=== PATIENT | female | born 1955 | race Caucasian/White ===

== ENCOUNTER 2016-11-11 07:53 | Outpatient (CLI) ==
[2016-11-11 08:27] LABS: ALBUMIN 3.6 g/dL (3.4-5.0); ALBUMIN/GLOBULIN RATIO 0.84; BILIRUBIN,TOTAL 0.14 mg/dL (0.00-1.20); BUN/CREATININE RATIO 14.1; CALCIUM 9.4 mg/dL (8.2-10.2); CHOL/HDL RATIO 6.4 (4.5-5.5); CREATININE 0.78 mg/dL (0.60-1.30); TOTAL PROTEIN 7.9 g/dL (5.8-8.1)
== END 2016-11-11 07:54 | disposition home or self-care (01) ==
LOC: LAB 07:53
PROVIDERS: ATTEND Nurse Practitioner Family
DX: E78.5 Hyperlipidemia, unspecified (principal)
CPT/HCPCS: 36415; 80053; 80061

== ENCOUNTER 2016-12-25 07:50 | Outpatient (CLI) ==
[2016-12-25 08:26] LABS: ALBUMIN 3.7 g/dL (3.4-5.0); ANION GAP 14.1; BILIRUBIN,TOTAL 0.18 mg/dL (0.00-1.20); BUN/CREATININE RATIO 8.86; CALCIUM 9.5 mg/dL (8.2-10.2); CHOL/HDL RATIO 6.2 (4.5-5.5); CREATININE 0.79 mg/dL (0.60-1.30); POTASSIUM 4.1 mmol/L (3.5-5.10); TOTAL PROTEIN 7.4 g/dL (5.8-8.1)
== END 2016-12-25 07:51 | disposition home or self-care (01) ==
LOC: LAB 07:50
PROVIDERS: ATTEND Nurse Practitioner Family
DX: E78.5 Hyperlipidemia, unspecified (principal); E78.1 Pure hyperglyceridemia
CPT/HCPCS: 36415; 80053; 80061

== ENCOUNTER 2017-05-15 07:44 | Outpatient (CLI) ==
[2017-05-15 07:59] LABS: BASOPHILS # (AUTO) 0.1 K/uL (0-0.2); BASOPHILS % (AUTO) 1.7 % (0.0-3.0); EOSINOPHILS # (AUTO) 0.3 K/ul (0.0-0.7); EOSINOPHILS % (AUTO) 6.8 % (0.0-7.0); HEMATOCRIT 40.3 % (37.0-47.0); HEMOGLOBIN 13.4 g/dl (12.0-16.0); IMMATURE GRANULOCYTE % (AUTO) 0.2 % (0.0-5.0); LYMPHOCYTES # (AUTO) 1.5 K/uL (0.60-3.4); LYMPHOCYTES % (AUTO) 31.1 (10.0-50.0); MEAN CORPUSCULAR HEMOGLOBIN 28.9 pg (27.0-31.0); MEAN CORPUSCULAR HGB CONC 33.3 (31.8-35.4); MEAN CORPUSCULAR VOLUME 86.9 fl (81.0-99.0); MONOCYTES # (AUTO) 0.3 K/uL (0.4-2.0); MONOCYTES % (AUTO) 6.2 (0-10); NEUTROPHILS # (AUTO) 2.6 K/ul (2.0-6.9); PLATELET COUNT 233 10^3/uL (140-440); RED BLOOD COUNT 4.64 10^6/ul (4.20-5.40); WHITE BLOOD COUNT 4.83 K/ul (4.6-10.2)
[2017-05-15 08:35] LABS: ALBUMIN 3.7 g/dL (3.4-5.0); ALBUMIN/GLOBULIN RATIO 0.86; BILIRUBIN,TOTAL 0.24 mg/dL (0.00-1.20); BUN/CREATININE RATIO 15.18; CALCIUM 10.2 mg/dL (8.2-10.2); CHOL/HDL RATIO 6.7 (4.5-5.5); CREATININE 0.79 mg/dL (0.60-1.30)
== END 2017-05-15 07:45 | disposition home or self-care (01) ==
LOC: LAB 07:44
PROVIDERS: ATTEND Nurse Practitioner Family
DX: E78.1 Pure hyperglyceridemia (principal); E78.5 Hyperlipidemia, unspecified; F41.9 Anxiety disorder, unspecified; I10 Essential (primary) hypertension
CPT/HCPCS: 36415; 80053; 80061; 84443; 85025

== ENCOUNTER 2017-05-27 12:46 | Outpatient (CLI) | END 2017-05-27 12:47 | disposition home or self-care (01) | LOC: RAD 12:46 | PROVIDERS: ATTEND Nurse Practitioner Family | DX: Z12.31 Encounter for screening mammogram for malignant neoplasm of breast (principal) | CPT/HCPCS: 77067 ==

== ENCOUNTER 2017-11-10 08:26 | Outpatient (CLI) | END 2017-11-10 08:27 | disposition home or self-care (01) | LOC: LAB 08:26 | PROVIDERS: ATTEND Nurse Practitioner Family | DX: E78.5 Hyperlipidemia, unspecified (principal); I10 Essential (primary) hypertension | CPT/HCPCS: 36415; 80053; 80061; 85025 ==

== ENCOUNTER 2018-05-04 16:25 | Outpatient (CLI) ==
--- NOTE | 2018-05-04 17:01 | DI ---
EXAM: Three views of the right elbow. History: Right elbow pain. Findings / impression: There is a mildly displaced intra-articular fracture of the right radial head of indeterminate age. No dislocation. No obvious joint effusion is present. Osteopenia.
--- NOTE | 2018-05-04 17:03 | DI ---
EXAM: Three views of the right shoulder. History: Right shoulder pain. Findings: Osteopenia. No acute fracture or dislocation. Mild narrowing of the right AC joint and ri ght glenohumeral joint. There is sclerosis and cystic change within the superior lateral aspect of th e humeral head. No abnormal calcifications or radiopaque foreign bodies. Impression: 1. No acute osseous abnormality. 2. Mild arthritis. 3. Possible rotator cuff disease
--- NOTE | 2018-05-04 17:03 | DI ---
EXAM: Two views of the right humerus. History: Right arm pain. Comparison: Right elbow radiograph 05/04/2018 Findings / impression: Age indeterminate mildly displaced intra-articular fracture of the radial head . No dislocation. Osteopenia.
== END 2018-05-04 16:26 | disposition home or self-care (01) ==
LOC: RAD 16:25
PROVIDERS: ATTEND Nurse Practitioner Family
DX: M25.511 Pain in right shoulder (principal); M79.601 Pain in right arm; M25.521 Pain in right elbow

== ENCOUNTER 2018-05-27 09:18 | Outpatient (CLI) ==
--- NOTE | 2018-05-28 11:53 | MAMMO ---
EXAM: Bilateral digital screening mammogram (2-D and 3-D) History: Screening Comparison: Bilateral mammogram 05/27/2017 Findings: MLO and CC views of bilateral breasts demonstrate scattered fibroglandular breast parenchy ma. CAD was reviewed by the radiologist. Tomosynthesis was performed. Stable benign bilateral vasc ular and scattered calcifications. There are no dominant masses, no suspicious microcalcifications a nd no architectural distortions Impression: Benign stable mammogram. Recommend followup routine screening mammography in 1 year. BIRADS 2
== END 2018-05-27 09:19 | disposition home or self-care (01) ==
LOC: RAD 09:18
PROVIDERS: ATTEND Nurse Practitioner Family
DX: Z12.31 Encounter for screening mammogram for malignant neoplasm of breast (principal)
CPT/HCPCS: 77067

== ENCOUNTER 2018-09-01 06:35 | Outpatient (CLI) ==
--- NOTE | 2018-09-03 10:26 | ECHO2D ---
Date of Exam: 09/01/18 Ordering Physician: SALOME RAHMAN APRN Room #: OP Reason for Echo: CHEST PAIN, ABNORMAL EKG M-Mode Normal Adult Results LV Dimensions Normal Adult Results AoV Opening excursions >1.6 1.6 LVEDD-base- 3.5-5.8 4.0 Ao root dimensions 2.0-3.7 3.3 LVESD-base- 3.1-4.6 L. Atrium dimensions 1.9-3.8 3.6 Post. Wall thickness 0.8-1.1 1.1 IV septum (thickness) 0.7-1.2 1.3 Post. Wall excursion 0.72-1.3 NORMAL Septal motion NORMAL Systolic motion R. Ventricular cavity 1.5-2.0 NORMAL LVEF 60% 57% Paradoxical septal wall motion NORMAL 2-D : 2-D M Mode Echocardiogram was performed using apical four chamber and left parasternal long and short axis views. Mitral, tricuspid and aortic valves appear to be normal. Contractility of the left ventricle seems to be normal, so is the cavity size. Left atrial cavity size and aortic root appear to be normal. There is no pericardial effusion. There is no thrombus noted in the left ventricular or left aortic cavity. No mitral valve prolapse noted. COLOR FLOW: MODERATE AORTIC REGURGITATION M-MODE: MV: NORMAL AV: NORMAL TV: NORMAL PV: CHAMBER SIZE: NORMAL WALL MOTION: NORMAL PERICARDIUM: NORMAL INTERPRETATION: 1. LEFT VENTRICULAR HYPERTROPHY 2. MODERATE AORTIC REGURGITATION 3. NORMAL LEFT VENTRICULAR CONTRACTILITY 4. NORMAL LEFT VENTRICLE SIZE MTDD
== END 2018-09-01 06:36 | disposition home or self-care (01) ==
LOC: CAR 06:35
PROVIDERS: ATTEND Nurse Practitioner Family
DX: R07.9 Chest pain, unspecified (principal); R94.31 Abnormal electrocardiogram [ECG] [EKG]

== ENCOUNTER 2018-10-20 07:31 | Outpatient (CLI) | END 2018-10-20 07:32 | disposition home or self-care (01) | LOC: LAB 07:31 | PROVIDERS: ATTEND Nurse Practitioner Family | DX: E78.5 Hyperlipidemia, unspecified (principal); E78.1 Pure hyperglyceridemia | CPT/HCPCS: 36415; 80053; 80061 ==

== ENCOUNTER 2018-11-04 11:37 | Outpatient (CLI) ==
--- NOTE | 2018-11-04 15:45 | DI ---
EXAM: 4 views of the left foot HISTORY: Pain postop. COMPARISON: None FINDINGS: There are postsurgical changes and hardware at the first MTP joint. There is no hardware f racture or loosening. There is mild degenerative change of the IP joint of the great toe. There is degenerative change of the MTP joints. There is internal fixation hardware in the distal fifth metat arsal. The arch is maintained with calcaneal spurs. IMPRESSION: 1. No acute abnormality or visualized fracture. 2. Postoperative changes of the first MTP joint. No evidence of hardware fracture or loosening. Th ere is degenerative change throughout the MTP joints. 3. There is no significant loss of the plantar arch with weightbearing.
== END 2018-11-04 11:38 | disposition home or self-care (01) ==
LOC: RAD 11:37
PROVIDERS: ATTEND Podiatrist Foot & Ankle Surgery
DX: M79.672 Pain in left foot (principal)

== ENCOUNTER 2019-04-20 07:39 | Outpatient (CLI) | END 2019-04-20 07:40 | disposition home or self-care (01) | LOC: LAB 07:39 | PROVIDERS: ATTEND Nurse Practitioner Family | DX: F41.9 Anxiety disorder, unspecified (principal); I10 Essential (primary) hypertension; E78.5 Hyperlipidemia, unspecified; E78.1 Pure hyperglyceridemia; Z72.0 Tobacco use | CPT/HCPCS: 36415; 80053; 80061; 84443; 85025 ==

== ENCOUNTER 2025-05-21 08:46 | Inpatient (IN) ==
--- NOTE | 2025-05-21 09:10 | ED.PDOC ---
General [facility] ED Provider: Dr. SABRA MANCUSO MD Chief Complaint: Dizziness Stated Complaint: Patient is a 69-year-old female that reported to the emergency department for generalized weakness. Patient stated that for the past week she has had generalized weakness and some dizziness. Patient stated that she just does not want to eat or drink anything because she does not feel like it. Patient stated that she has had some nausea and vomiting but her last episode was yesterday. Patient stated that prior to these symptoms starting she had a UTI for which she was treated with levofloxacin. Patient stated that she has not been able to see her doctor since then and has not gotten any better as mentioned above. Patient stated that she has been generalized weak. Patient stated that she has not lost any use of the limbs or any sensation in the limbs. Patient stated that she has not had any falls or loss of consciousness. Patient stated that she has not had any head trauma. Patient stated that she has not had any fever that she knows of. Patient denies any shortness of breath, lymphadenopathy, fever, or any other acute symptoms at the current time. Patient's vital signs are currently stable. Patient's GCS is 15. Patient is alert and oriented person, place, and time. Patient's NIH score is 0. Time Seen by Provider: 05/21/25 08:51 Mode of Arrival: Walk-In Information Source: Patient Exam Limitations: No limitations Primary Care Provider: GHASSAN HENNING MD Nursing and Triage Documentation Reviewed and Agree: Yes Opioid Naive vs. Tolerant What is Opioid Naive?: *Opioid Naive implies the patient is not already taking opioids or not chronically receiving opioids on a daily basis. *PRN dosing is not "usually" associated with tolerance. *Patients are at higher risk of over-sedation and aspiration. What is Opioid Tolerant?: *Opioid Tolerance implies less than the expected response to an opioid. *Acquired tolerance is defined by the patient taking 60mg of oral morphine daily (or equianalgesic dose of another opioid) for 1 week or more. *Often associated with chronic pain. *May take more than usual dose to achieve desired pain control. Review of Systems Review Of Systems Constitutional: Reports No symptoms Cardiac: Reports Lightheadedness Neurological: Reports Weakness All Other Systems: Reviewed and Negative [facility] Medical History Pre-syncope Concern for orthostatics previous visit. Remains resolved per patient. Reviewed poor diet, insomnia, posture. Discussed electrolyte issues w/ diet, cardiovascular changes w/ posture changes, heart rhythm issues, history of murmur, history of aortic aneursym. NSAIDS reviewed w/ patient. Some literature supports ?benefit to Aneursym when NSAIDS used. She is doing very well. - Bradycardia mild. EKG declined - Not on BB. Denies falls/dizzines sas of 09/26/24. Stable. R55 - Syncope and collapse (ICD-10) Pain of right upper extremity will get xray today of right arm and call with results continue muscle relaxer M79.601 - Pain in right arm (ICD-10) Smokes 1/2 pack per day F17.210 - Nicotine dependence, cigarettes, uncomplicated (ICD-10) Smoking greater than 40 pack years F17.210 - Nicotine dependence, cigarettes, uncomplicated (ICD-10) Back pain stable 08/04/23. Xray 07/30/22. LSP. Multlevel degeneration changes. Some progressive disc disease. M54.9 - Dorsalgia, unspecified (ICD-10) Osteopenia M85.80 - Other specified disorders of bone density and structure, unspecified site (ICD-10) Smokes less than 1/2 pack per day F17.210 - Nicotine dependence, cigarettes, uncomplicated (ICD-10) Medicare annual wellness visit, subsequent Z00.00 - Encounter for general adult medical examination without abnormal findings (ICD-10) At risk for bone density loss Z91.89 - Other specified personal risk factors, not elsewhere classified (ICD-10) Grief F43.21 - Adjustment disorder with depressed mood (ICD-10) Cervicalgia M54.2 - Cervicalgia (ICD-10) Dizziness and giddiness R42 - Dizziness and giddiness (ICD-10) Right elbow pain M25.521 - Pain in right elbow (ICD-10) Partial tear of common extensor tendon of elbow S56.519A - Strain of other extensor muscle, fascia and tendon at forearm level, unspecified arm, initial encounter (ICD-10) Tingling of right upper extremity MRI without contrast R20.2 - Paresthesia of skin (ICD-10) Tendonitis of elbow, right advised bracing elbow apply ice, take prescribed medicine Prednisone x 5 days, then start Nabumentone, and Flexeril at bedtime as needed advised to avoid repetitive motions, lifting greater than 5 pounds, pulling and tugging follow up in 2 weeks M65.9 - Synovitis and tenosynovitis, unspecified (ICD-10) Tobacco abuse Z72.0 - Tobacco use (ICD-10) Tingling of left upper extremity R20.2 - Paresthesia of skin (ICD-10) Left shoulder pain M25.512 - Pain in left shoulder (ICD-10) Hypertension Initial check 152/78 repeat 136/80. I10 - Essential (primary) hypertension (ICD-10) Gastroesophageal reflux disease K21.9 - Gastro-esophageal reflux disease without esophagitis (ICD-10) Hallux valgus of left foot M20.12 - Hallux valgus (acquired), left foot (ICD-10) Hallux valgus of right foot M20.11 - Hallux valgus (acquired), right foot (ICD-10) Tailor's bunion of left foot M21.622 - Bunionette of left foot (ICD-10) Tailor's bunion of right foot M21.621 - Bunionette of right foot (ICD-10) Anxiety F41.9 - Anxiety disorder, unspecified (ICD-10) Foot pain, bilateral M79.671 - Pain in right foot (ICD-10) Cervical cancer C53.9 - Malignant neoplasm of cervix uteri, unspecified (ICD-10) Family History Mother , pneumonia at age 98 Diabetes Alzheimer disease Cardiac disease FATHER , pacemaker quit working. heart failure Cardiac disease SISTER , pacemaker quit working Cardiac disease BROTHER , diabetes Cardiac disease Diabetes Social History Smoking and tobacco status: Current every day smoker Tobacco type: cigarettes Smoking packs per day: 1 Years smoked: 31 Tobacco: How many years used: 31 Quit status: quit date established Second hand smoke exposure: Yes Smoking risk assessment performed: Yes Alcohol intake: never Counseling given: No Substance use type: does not use Counseling given: No Judie/buddhism: Mandaeism Special judie needs: No Agree to transfusion: No Adopted: No Caregiver/support person: No Foster care: No Household members: significant other Housing: house Marital status: W / Lives independently: Yes Daycare: no daycare Number of children: 4 Number of grandchildren: 8 Highest education level completed: 9th grade Financial difficulty paying for basics: not very hard service: No FDC: No Current occupational status: retired Current occupational exposures/hazards: No 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 for sister and niece ) Sexually active: No Do you think of yourself as: straight/heterosexual Current gender identity: female Seatbelt use: always Helmet use: No (N/A) Drives intoxicated or rides with intoxicated hydraulic lift driver: No Current diet type/program: regular Well-balanced diet: rarely Caffeine: Yes Eating out: rarely or never Reads food labels: usually or always During the past year weight has: decreased > 10 lbs Water heater temperature set < 120 degrees: Yes Working smoke detector in home: Yes Fire extinguisher in home: No Carbon monoxide detector in home: Yes Firearms in home: Yes Firearms unloaded and locked: Yes What type of physical activity do you participate in?: walking and other Physical activity functional status: independent ambulation How many days of moderate to strenuous exercise, like a brisk walk, did you do in the last 7 days: 0 Surgical History H/O tubal ligation Z98.51 - Tubal ligation status (ICD-10) Previous back surgery Z98.89 - Other specified postprocedural states (ICD-10) left bunion surgery oct 2017 History of musculoskeletal system surgery (12/31/15) 4-[address]th [address] [place] Z98.890 - Other specified postprocedural states (ICD-10) History of tubal ligation (~1977) Z98.51 - Tubal ligation status (ICD-10) Status post tonsillectomy Z90.89 - Acquired absence of other organs (ICD-10) Status post hysterectomy (~2003) secondary to Cervical CA ([place]) Z90.710 - Acquired absence of both cervix and uterus (ICD-10) Status post cholecystectomy (~1984) Z90.49 - Acquired absence of other specified parts of digestive tract (ICD- 10) Female Reproductive History Menstrual Age of Menarche: 10 Hx Hysterectomy: Yes (2006) Hx Tubal Ligation: Yes Physical Exam Physical Exam Appearance: Reports Other (Alert, pleasant elderly female) Ill-appearing: None Pain Distress: None Eyes: Reports FELICITA, EOMI and Conjunctiva clear ENT: Reports Ears normal, Nose normal, Oropharynx normal and Other (Moist oral mucosa) Neck: Supple Respiratory: Reports Airway patent, Breath sounds clear, Breath sounds equal and Respirations nonlabored Cardiovascular: Reports RRR, Pulses normal, No rub and No murmur GI/: Reports Soft, Nontender, No masses and No Organomegaly Musculoskeletal: Reports Normal strength, ROM intact, No edema and No calf tenderness Skin: Reports Warm, Dry and Normal color Neurological: Reports Sensation intact, Motor intact, Alert and Oriented Psychiatric: Reports Mood appropriate Anna Coma Scale Anna Coma Scale Response Scores: Best Response = 15 Comatose Client = 8 or Less Totally Unresponsive = 3 Physician Progress Note Physician Progress Note: Patient is a 69-year-old female that reported to the emergency department for generalized weakness. Patient stated that for the past week she has had generalized weakness and some dizziness. Patient stated that she just does not want to eat or drink anything because she does not feel like it. Patient stated that she has had some nausea and vomiting but her last episode was yesterday. Patient stated that prior to these symptoms starting she had a UTI for which she was treated with levofloxacin. Patient stated that she has not been able to see her doctor since then and has not gotten any better as mentioned above. Patient stated that she has been generalized weak. Patient stated that she has not lost any use of the limbs or any sensation in the limbs. Patient stated that she has not had any falls or loss of consciousness. Patient stated that she has not had any head trauma. Patient stated that she has not had any fever that she knows of. Patient denies any shortness of breath, lymphadenopathy, fever, or any other acute symptoms at the current time. Patient's vital signs are currently stable. Patient's GCS is 15. Patient is alert and oriented person, place, and time. Patient's NIH score is 0. Patient did state that she smokes a pack of cigarettes daily. Patient denies any drug or alcohol use. -It appears patient was seen on 05/12/2025 this month and was diagnosed with a UTI. Patient was subsequently given cephalexin 500 mg twice daily. Since that time patient has not gotten any better. Will order a urinalysis. - Will order IV normal saline 1 L bolus for dehydration. - Will give the patient p.o. meclizine 25 mg once for dizziness. - Will order a an EKG and a troponin to rule out cardiac as the reasoning for patient's lightheadedness. - Will order CT of the head to rule out any intracranial pathology that could be contributing to the patient's lightheadedness or dizziness. - Will order baseline labs. - EKG shows normal sinus rhythm with left axis deviation. Ventricular rate 63 bpm. No acute STEMI noted. EKG interpreted by ER physician. - CT of the head shows no acute intracranial findings. - Patient's sodium is 112. Will give hypertonic saline in the emergency department. Will give hypertonic saline 3% at 150 mL over 20 minutes. Will contact hospitalist for admission. [phone]) spoke to Maria Luz hospitalist at [facility] and discussed patient's hyponatremia and current treatment with hypertonic saline. [facility] has agreed to accept this patient for inpatient admission. Patient's vital signs are stable at time of admission. Patient is pending urinalysis at time of admission. Course Course 05/21/25 09:34 05/21/25 09:34 Orders, Labs, Meds: Lab Review 05/21/25 05/21/25 09:34 09:50 WBC 10.35 H RBC 4.70 Hgb 13.0 Hct 39.7 MCV 84.5 MCH 27.7 MCHC 32.7 RDW Coeff of Keith 16.4 H Plt Count 422 Immature Gran % (Auto) 2.6 Neut % (Auto) 85.6 H Lymph % (Auto) 4.4 L Bath % (Auto) 6.9 Eos % (Auto) 0.1 Baso % (Auto) 0.4 Neut # (Auto) 8.9 H Lymph # (Auto) 0.5 L Bath # (Auto) 0.7 Eos # (Auto) 0.0 Baso # (Auto) 0.0 Immature Gran # (Auto) 0.3 Sodium 112.7 L* Potassium 4.15 Chloride 82.7 L Carbon Dioxide 14.6 L Anion Gap 19.55 BUN 22.9 H Creatinine 0.81 Estimated GFR (MDRD) 70.00 BUN/Creatinine Ratio 28.27 Glucose 102.9 Calcium 9.00 Total Bilirubin 1.09 AST 48.2 H ALT 23.3 Alkaline Phosphatase 118.7 Troponin I < 0.012 Total Protein 9.04 H Albumin 4.51 Globulin 4.53 Albumin/Globulin Ratio 0.99 Influ A Molecular Assay Negative by naat Influ B Molecular Assay Negative by naat SARS CoV-2 RNA Rapid ABDIRIZAK Negative Orders Category Date Time Status EKG-(ED & IP/OBS ONLY) Stat CARDIO 05/21/25 09:07 Completed CBC W/ AUTO DIFF Stat LAB 05/21/25 09:34 Completed CMP [COMPREHENSIVE METABOLIC PANEL] Stat LAB 05/21/25 09:34 Completed COVID [SARS COV-2 RNA RAPID ABDIRIZAK] Stat LAB 05/21/25 09:50 Completed FLU A & B MOLECULAR [FLU A/B MOLECULAR] Stat LAB 05/21/25 09:50 Completed TROPONIN I Stat LAB 05/21/25 09:34 Completed URINALYSIS C & S IF INDICATED Stat LAB 05/21/25 10:33 Received Meclizine HCl [Antivert] Meds 05/21/25 09:05 Discontinued 25 mg PO ONCE STA Sodium Chloride 0.9% [Sodium Chloride] 1,000 ml Meds 05/21/25 09:05 Discontinued IV BOLUS Sodium Chloride 3% 150 ml Meds 05/21/25 10:14 Discontinued IV 450 mls/hr CT HEAD W/O CONTRAST Stat RADS 05/21/25 09:04 Completed Medications Discontinued Medications Generic Name Dose Route Start Last Admin Trade Name Freq PRN Reason Stop Dose Admin Sodium Chloride 1,000 mls @ 1,000 mls/hr 05/21/25 09:05 05/21/25 09:39 Sodium Chloride IV 05/21/25 10:04 1,000 mls/hr BOLUS ONE Administration Sodium Chloride 150 mls @ 450 mls/hr 05/21/25 10:14 Sodium Chloride 3% IV 05/21/25 10:33 .Q20M ONE Meclizine HCl 25 mg 05/21/25 09:05 05/21/25 09:39 Meclizine Hcl 25 Mg Tablet PO 05/21/25 09:06 25 mg ONCE STA Administration Vital Signs: Temp Pulse Resp BP Pulse Ox 05/21/25 09:05 97.2 F L 66 18 132/67 96 Discharge Plan Discharge Patient Disposition: ADMITTED INPATIENT Discharge Problem: Acute hyponatremia, Dehydration, Generalized weakness Did you review [place] [employer] for ALL controlled substances?: Not Applicable ED Provider: SABRA MANCUSO Condition: Stable
--- NOTE | 2025-05-21 09:38 | CT ---
EXAM: CT HEAD WITHOUT CONTRAST. HISTORY: Lightheaded. COMPARISON: MRI of the brain 10/09/2023. TECHNIQUE: Noncontrast CT images of the head were obtained. Axial reconstructions with sagittal and coronal reformats were provided. The submitted images are mildly limited by patient motion FINDINGS: The ventricles, basal cisterns and sulci are normal in size, shape and configuration for the patient's age. There is no evidence of an acute intracranial hemorrhage. No mass effect or shift of the midline. No abnormal extra-axial fluid collections are identified. Decreased attenuation along the periventricular/deep white matter suggesting mild changes of chronic microvascular ischemic disease. 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 Gar-white differentiation is within normal limits. Bony calvarium is unremarkable. Scalp and soft tissues are unremarkable. The visualized paranasal sinuses are well-aerated. Vascular calcifications. IMPRESSION: No acute intra-cranial abnormality. Chronic findings as detailed above. All CT scans are performed using dose optimization techniques as appropriate to the performed exam and include at least one of the following: Automated exposure control, adjustment of the mA and/or kV according to size, and the use of iterative reconstruction technique.
[2025-05-21] MEDS: ANTIVERT PO STA (09:39)
[2025-05-21] MEDS: SODIUM CHLORIDE 1,000 ML IV ONE (09:39)
[2025-05-21 09:43] LABS: IMMATURE GRANULOCYTE # (AUTO) 0.3 (0.0-1.0); IMMATURE GRANULOCYTE % (AUTO) 2.6 % (0.0-5.0); RDW COEFFICIENT OF VARIATION 16.4 % (11.6-14.8)
[2025-05-21 10:09] LABS: CREATININE 0.81 mg/dL (0.60-1.30)
[2025-05-21 10:10] LABS: MOLECULAR FLU A NEGATIVE BY NAAT (NEGATIVE); MOLECULAR FLU B NEGATIVE BY NAAT (NEGATIVE); SARS COV-2 RNA RAPID NAAT NEGATIVE (NEGATIVE)
[2025-05-21] MEDS ORDERED: SODIUM CHLORIDE 3% 150 ML IV ONE (10:14)
[2025-05-21] MEDS ORDERED: ZOFRAN SDV IVP PRN (10:45)
[2025-05-21 11:10] LABS: GLUCOSE, URINE (UA) Negative (NEGATIVE); LEUKOCYTE ESTERASE ,URINE 3+ (NEGATIVE); URINE, BLOOD 3+ (NEGATIVE)
[2025-05-21 11:12] LABS: CHOL/HDL RATIO 7.9 (4.5-5.5); VLDL CHOLESTEROL 38.0 mg/dL (2-30)
[2025-05-21] MEDS: ZOSYN 3.375 GM 3.375 GM in SODIUM CHLORIDE 100ML 100 ML IV ONE (11:29)
[2025-05-21] MEDS: SODIUM CHLORIDE 3% 500 ML IV SCH (12:08)
--- NOTE | 2025-05-21 12:36 | PCM ---
Date of Service Date Seen by Provider: 05/21/25 Time Seen by Provider: 13:00 Admit Day/Time Admission Date: 05/21/25 Admission Time: 10:43 Reason for Admission Chief Complaint: ACUTE HYPONATREMIA, DEHYDRATION Hospital Provider Hospital Provider: JOANNA BARKSDALE PA-C, [facility] Primary Care Physician Primary Care Physician: GHASSAN HENNING MD History of Present Illness History of Present Illness: Patient is a 69-year-old female with past medical history of hyperlipidemia, hypertension, GERD, restless leg syndrome, aortic regurg, COPD, osteoporosis who presented to the ER with overall weakness and not feeling well. She was recently diagnosed with a UTI and prescribed Keflex. She states she was able to finish most of it except for 3 doses. She has continued to not feel well and have significant dizziness. She states she had 1 episode of vomiting this morning. States she has not ate or drank much. She has been alert and oriented. In the ER she was found to have a sodium level of 112. Historically it has been in the 140s. No recent labs in the last few months to compare to. No new medications recently other than the keflex. Urinalysis still significant for UTI. Zosyn given in ER started on 3% hypertonic saline. Admitted to [facility] [place]. Case Discussed With Case Discussed With: Patient's case was discussed with the ER Physicians, Dr. Mariscal. [facility] Medical History Pre-syncope Concern for orthostatics previous visit. Remains resolved per patient. Reviewed poor diet, insomnia, posture. Discussed electrolyte issues w/ diet, cardiovascular changes w/ posture changes, heart rhythm issues, history of murmur, history of aortic aneursym. NSAIDS reviewed w/ patient. Some literature supports ?benefit to Aneursym when NSAIDS used. She is doing very well. - Bradycardia mild. EKG declined - Not on BB. Denies falls/dizzines sas of 09/26/24. Stable. R55 - Syncope and collapse (ICD-10) Pain of right upper extremity will get xray today of right arm and call with results continue muscle relaxer M79.601 - Pain in right arm (ICD-10) Smokes 1/2 pack per day F17.210 - Nicotine dependence, cigarettes, uncomplicated (ICD-10) Smoking greater than 40 pack years F17.210 - Nicotine dependence, cigarettes, uncomplicated (ICD-10) Back pain stable 08/04/23. Xray 07/30/22. LSP. Multlevel degeneration changes. Some progressive disc disease. M54.9 - Dorsalgia, unspecified (ICD-10) Osteopenia M85.80 - Other specified disorders of bone density and structure, unspecified site (ICD-10) Smokes less than 1/2 pack per day F17.210 - Nicotine dependence, cigarettes, uncomplicated (ICD-10) Medicare annual wellness visit, subsequent Z00.00 - Encounter for general adult medical examination without abnormal findings (ICD-10) At risk for bone density loss Z91.89 - Other specified personal risk factors, not elsewhere classified (ICD-10) Grief F43.21 - Adjustment disorder with depressed mood (ICD-10) Cervicalgia M54.2 - Cervicalgia (ICD-10) Dizziness and giddiness R42 - Dizziness and giddiness (ICD-10) Right elbow pain M25.521 - Pain in right elbow (ICD-10) Partial tear of common extensor tendon of elbow S56.519A - Strain of other extensor muscle, fascia and tendon at forearm level, unspecified arm, initial encounter (ICD-10) Tingling of right upper extremity MRI without contrast R20.2 - Paresthesia of skin (ICD-10) Tendonitis of elbow, right advised bracing elbow apply ice, take prescribed medicine Prednisone x 5 days, then start Nabumentone, and Flexeril at bedtime as needed advised to avoid repetitive motions, lifting greater than 5 pounds, pulling and tugging follow up in 2 weeks M65.9 - Synovitis and tenosynovitis, unspecified (ICD-10) Tobacco abuse Z72.0 - Tobacco use (ICD-10) Tingling of left upper extremity R20.2 - Paresthesia of skin (ICD-10) Left shoulder pain M25.512 - Pain in left shoulder (ICD-10) Hypertension Initial check 152/78 repeat 136/80. I10 - Essential (primary) hypertension (ICD-10) Gastroesophageal reflux disease K21.9 - Gastro-esophageal reflux disease without esophagitis (ICD-10) Hallux valgus of left foot M20.12 - Hallux valgus (acquired), left foot (ICD-10) Hallux valgus of right foot M20.11 - Hallux valgus (acquired), right foot (ICD-10) Tailor's bunion of left foot M21.622 - Bunionette of left foot (ICD-10) Tailor's bunion of right foot M21.621 - Bunionette of right foot (ICD-10) Anxiety F41.9 - Anxiety disorder, unspecified (ICD-10) Foot pain, bilateral M79.671 - Pain in right foot (ICD-10) Cervical cancer C53.9 - Malignant neoplasm of cervix uteri, unspecified (ICD-10) Surgical History H/O tubal ligation Z98.51 - Tubal ligation status (ICD-10) Previous back surgery Z98.89 - Other specified postprocedural states (ICD-10) left bunion surgery oct 2017 History of musculoskeletal system surgery (12/31/15) 4-[address] lumbar [place] Z98.890 - Other specified postprocedural states (ICD-10) History of tubal ligation (~1977) Z98.51 - Tubal ligation status (ICD-10) Status post tonsillectomy Z90.89 - Acquired absence of other organs (ICD-10) Status post hysterectomy (~2003) secondary to Cervical CA ([place]) Z90.710 - Acquired absence of both cervix and uterus (ICD-10) Status post cholecystectomy (~1984) Z90.49 - Acquired absence of other specified parts of digestive tract (ICD- 10) Family History Mother , pneumonia at age 98 Diabetes Alzheimer disease Cardiac disease FATHER , pacemaker quit working. heart failure Cardiac disease SISTER , pacemaker quit working Cardiac disease BROTHER , diabetes Cardiac disease Diabetes Social History Smoking and tobacco status: Current every day smoker Tobacco type: cigarettes Smoking packs per day: 1 Years smoked: 31 Tobacco: How many years used: 31 Quit status: quit date established Second hand smoke exposure: Yes Smoking risk assessment performed: Yes Alcohol intake: never Counseling given: No Substance use type: does not use Counseling given: No Judie/protestant: Evangelical Special judie needs: No Agree to transfusion: No Adopted: No Caregiver/support person: No Foster care: No Household members: significant other Housing: house Marital status: W / Lives independently: Yes Daycare: no daycare Number of children: 4 Number of grandchildren: 8 Highest education level completed: 9th grade Financial difficulty paying for basics: not very hard service: No senior care: No Current occupational status: retired Current occupational exposures/hazards: No 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 [employer] Pets and animals: Yes (dog) Leisure activites: games, reading and other History of recent travel: Yes ([facility] for sister and niece ) Sexually active: No Do you think of yourself as: straight/heterosexual Current gender identity: female Seatbelt use: always Helmet use: No (N/A) Drives intoxicated or rides with intoxicated auto haulaway driver: No Current diet type/program: regular Well-balanced diet: rarely Caffeine: Yes Eating out: rarely or never Reads food labels: usually or always During the past year weight has: decreased > 10 lbs Water heater temperature set < 120 degrees: Yes Working smoke detector in home: Yes Fire extinguisher in home: No Carbon monoxide detector in home: Yes Firearms in home: Yes Firearms unloaded and locked: Yes What type of physical activity do you participate in?: walking and other Physical activity functional status: independent ambulation How many days of moderate to strenuous exercise, like a brisk walk, did you do in the last 7 days: 0 Allergies Allergies Allergy/AdvReac Type Severity Reaction Status Date / Time codeine Allergy Intermediate Nausea Verified 05/21/25 09:14 Current Medications Home Medications Acetaminophen (Acetaminophen 325 Mg Tablet) 650 mg PO Q4H PRN PRN Reason: Mild Pain Atorvastatin Calcium (Atorvastatin Calcium 20 Mg Tablet) 0 mg PO .COMPLEX STACEY Fenofibrate (Fenofibrate 160 Mg Tablet) 160 mg PO QDAY STACEY Sodium Chloride (Sodium Chloride 3%) 500 mls @ 30 mls/hr IV .[id number] STACEY Last Admin: 05/21/25 12:08 Dose: 30 mls/hr CEFTRIAXONE/D5W 1 GM PREMIX (Rocephin 1 Gm/50 Ml D5w) 1 gm in 50 mls @ 100 mls/hr IV DAILY STACEY Stop: 05/24/25 20:59 Losartan Potassium (Losartan Potassium 25 Mg Tablet) 25 mg PO QDAY STACEY Omeprazole (Omeprazole 20 Mg Capsule.Dr) 0 mg PO .COMPLEX STACEY Ondansetron HCl (Ondansetron Hcl/Pf 4 Mg/2 Ml Sdv) 4 mg IVP Q6H PRN PRN Reason: Nausea / Vomiting Ropinirole HCl (Ropinirole Hcl 0.25 Mg Tablet) 0.25 mg PO DAILY STACEY aspirin-caffeine 500 mg-32.5 mg tablet (Diony Back and Body) 1 ea PO Q4-6H PRN pain 01/31/15 [History Confirmed 05/21/25] atorvastatin 80 mg tablet See Rx Instructions .Route .COMPLEX #30 ea 12/01/22 [Rx Confirmed 05/21/25] alendronate 70 mg tablet See Rx Instructions .Route .COMPLEX #12 tabs 04/06/25 [Rx Confirmed 05/21/25] fenofibrate 160 mg tablet 160 mg PO QDAY #30 tabs 04/06/25 [Rx Confirmed 05/21/25] omeprazole 20 mg capsule,delayed release See Rx Instructions .Route .COMPLEX #30 caps 04/06/25 [Rx Confirmed 05/21/25] ropinirole 0.25 mg tablet 0.25 mg PO ONCE #30 tabs 04/06/25 [Rx Confirmed 05/21/25] losartan 25 mg tablet 25 mg PO QDAY #30 tabs 05/09/25 [Rx Confirmed 05/21/25] Opioid Naive vs. Tolerant Does Patient Take Opioids?: No Is Patient Opioid Naive?: Yes What is Opioid Naive?: *Opioid Naive implies the patient is not already taking opioids or not chronically receiving opioids on a daily basis. *PRN dosing is not "usually" associated with tolerance. *Patients are at higher risk of over-sedation and aspiration. Is Patient Opioid Tolerant?: No What is Opioid Tolerant?: *Opioid Tolerance implies less than the expected response to an opioid. *Acquired tolerance is defined by the patient taking 60mg of oral morphine daily (or equianalgesic dose of another opioid) for 1 week or more. *Often associated with chronic pain. *May take more than usual dose to achieve desired pain control. Review of Systems Constitutional: Reports Fatigue, Weakness and Loss of appetite; Denies Fever Head: Reports Normocephalic and Atraumatic Cardiovascular: Denies Chest pain, Chest Pressure or Edema Respiratory: Denies Cough or Shortness of air Gastrointestinal: Reports Nausea and Vomiting; Denies Diarrhea, Reflux, Abdominal pain or Melena Genitourinary: Denies Dysuria or Frequency Neurological: Reports Dizziness; Denies Headache or Syncope Physical examination Most Recent Vital Signs: Most Recent Vital Signs Temperature 97.2 F L 05/21/25 09:05 Temperature Source Infrared 05/21/25 09:05 Pulse Rate 66 05/21/25 09:05 Respiratory Rate 18 05/21/25 09:05 Blood Pressure 132/67 05/21/25 09:05 O2 Sat by Pulse Oximetry 96 05/21/25 09:05 Height 5 ft 05/21/25 09:05 Weight 44.2 kg 05/21/25 09:05 Appearance: Positive Alert and Oriented x3 and Ill-Appearing Skin: Positive [place], Warm and Good Turgor HEENT: Positive Normocephalic and Atraumatic Chest/Lungs: Positive Clear to Auscultation Bilaterally; Negative Rales, Rhonci or Wheezes Heart: Positive RRR and Murmur GI/: Positive Soft, Nontender, Bowel Sounds Normal and No Distention Extremities: Negative Edema Neurological: Positive Cranial Nerves Intact, Alert, Oriented and Other (+genera lized weakness ) Psychiatric: Positive Oriented x4, Appropriate Mood and Appropriate Affect Labs This Visit Labs This Visit: Labs This Visit 05/21/25 05/21/25 05/21/25 09:34 09:50 10:33 WBC 10.35 H RBC 4.70 Hgb 13.0 Hct 39.7 MCV 84.5 MCH 27.7 MCHC 32.7 RDW Coeff of Keith 16.4 H Plt Count 422 Immature Gran % (Auto) 2.6 Neut % (Auto) 85.6 H Lymph % (Auto) 4.4 L [place] % (Auto) 6.9 Eos % (Auto) 0.1 Baso % (Auto) 0.4 Neut # (Auto) 8.9 H Lymph # (Auto) 0.5 L [place] # (Auto) 0.7 Eos # (Auto) 0.0 Baso # (Auto) 0.0 Immature Gran # (Auto) 0.3 Sodium 112.7 L* Potassium 4.15 Chloride 82.7 L Carbon Dioxide 14.6 L Anion Gap 19.55 BUN 22.9 H Creatinine 0.81 Estimated GFR (MDRD) 70.00 BUN/Creatinine Ratio 28.27 Glucose 102.9 Uric Acid Calcium 9.00 Total Bilirubin 1.09 AST 48.2 H ALT 23.3 Alkaline Phosphatase 118.7 Troponin I < 0.012 Total Protein 9.04 H Albumin 4.51 Globulin 4.53 Albumin/Globulin Ratio 0.99 Triglycerides Cholesterol LDL Cholesterol, Calc VLDL Cholesterol HDL Cholesterol Cholesterol/HDL Ratio Urine Color Yellow Urine Clarity Clear Urine pH 6.0 Ur Specific [place] 1.020 Urine Protein 3+ H Urine Glucose (UA) Negative Urine Ketones 1+ H Urine Blood 3+ H Urine Nitrite Positive H Urine Bilirubin 1+ H Urine Urobilinogen 1.0 H Ur Leukocyte Esterase 3+ H Urine Microscopic RBC 10-20 Urine Microscopic WBC 10-20 Ur Squamous Epith Cells 5-10 Urine Bacteria 1+ Influ A Molecular Assay Negative by naat Influ B Molecular Assay Negative by naat SARS CoV-2 RNA Rapid ABDIRIZAK Negative 05/21/25 10:53 WBC RBC Hgb Hct MCV MCH MCHC RDW Coeff of Keith Plt Count Immature Gran % (Auto) Neut % (Auto) Lymph % (Auto) [place] % (Auto) Eos % (Auto) Baso % (Auto) Neut # (Auto) Lymph # (Auto) [place] # (Auto) Eos # (Auto) Baso # (Auto) Immature Gran # (Auto) Sodium Potassium Chloride Carbon Dioxide Anion Gap BUN Creatinine Estimated GFR (MDRD) BUN/Creatinine Ratio Glucose Uric Acid 5.08 Calcium Total Bilirubin AST ALT Alkaline Phosphatase Troponin I Total Protein Albumin Globulin Albumin/Globulin Ratio Triglycerides 189.7 H Cholesterol 173.9 LDL Cholesterol, Calc 114 VLDL Cholesterol 38 H HDL Cholesterol 21.9 L Cholesterol/HDL Ratio 7.9 H Urine Color Urine Clarity Urine pH Ur Specific [place] Urine Protein Urine Glucose (UA) Urine Ketones Urine Blood Urine Nitrite Urine Bilirubin Urine Urobilinogen Ur Leukocyte Esterase Urine Microscopic RBC Urine Microscopic WBC Ur Squamous Epith Cells Urine Bacteria Influ A Molecular Assay Influ B Molecular Assay SARS CoV-2 RNA Rapid ABDIRIZAK Imaging Imaging: EXAM: CT HEAD WITHOUT CONTRAST. HISTORY: Lightheaded. COMPARISON: MRI of the brain 10/09/2023. TECHNIQUE: Noncontrast CT images of the head were obtained. Axial reconstruc tions with sagittal and coronal reformats were provided. The submitted images are mildly limited by patient motion FINDINGS: The ventricles, basal cisterns and sulci are normal in size, shape and co nfiguration for the patient's age. There is no evidence of an acute intracranial hemorrhage. No mass effect or shift of the midline. No abnormal extra-axial fluid collections are identified. Decreased attenuation along the periventricular/deep white matter suggesting mild changes of chronic microvascular ischemic disease. 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 Gar-white differentiation is within normal limits. Bony calvarium is unremarkable. Scalp and soft tissues are unremarkable. The visualized paranasal sinuses are well-aerated. Vascular calcifications. IMPRESSION: No acute intra-cranial abnormality. Chronic findings as detailed above. Review Statement Review Statement: I have independently reviewed and interpreted the labs/EKGs/imaging that were ordered by the ER provider. I have reviewed all outside records that are available currently in our EMR including imaging/notes/labs from previous visits. Plan Plan: 1. Hyponatremia, severe, symptomatic - unclear acuity, will bring up slowly, 3% hypertonic saline at 30 ml/hr, recheck bmp q4hrs. Sent for uric acid, lipids, serum/urine osmol, urine sodium. Reviewed medications, no offenders noted. Could be from lack of intake. Seizure precautions. 2. Hyperlipidemia - Cont home meds 3. Hypertension - Cont home meds 4. GERD - Cont home meds 5. RLS - Cont home meds 6. UTI - urine culture pending, culture from 05/12 showed serratia marcescens sensitive to rocephin, will order rocephin. DVT Prophylaxis: Lovenox Time Spent: Greater than 80 minutes spent with patient, 50% of the time spent with this patient was devoted to counseling and coordination of care. [facility] minutes spent discussing advance care planning. Admit to: inpatient Discussed Plan of Care with Dr. Pat Pandya. Medications Medication Orders: Medications Ordered Category Date Time Status Acetaminophen [Tylenol] Meds 05/21/25 10:45 Active 650 mg PO Q4H PRN Ondansetron HCl/Pf [Zofran Sdv] Meds 05/21/25 10:45 Active 4 mg IVP Q6H PRN Sodium Chloride 3% 500 ml Meds 05/21/25 11:00 Active IV 30 mls/hr
[2025-05-21 12:56] VITALS: BMI 19.4
[2025-05-21 13:16] LABS: CREATININE 0.66 mg/dL (0.60-1.30)
[2025-05-21 17:17] LABS: CREATININE 0.6 mg/dL (0.60-1.30)
[2025-05-21 21:11] LABS: CREATININE 0.54 mg/dL (0.60-1.30)
[2025-05-21] MEDS: ROCEPHIN 1 GM/50 ML D5W 1 GM/50 ML BAG IV SCH (21:16)
[2025-05-22] MEDS: PRILOSEC PO SCH (05:24)
[2025-05-22 05:52] LABS: IMMATURE GRANULOCYTE # (AUTO) 0.1 (0.0-1.0); IMMATURE GRANULOCYTE % (AUTO) 1.6 % (0.0-5.0); RDW COEFFICIENT OF VARIATION 16.5 % (11.6-14.8)
[2025-05-22 06:00] LABS: CREATININE 0.44 mg/dL (0.60-1.30)
[2025-05-22] MEDS: REQUIP PO SCH (08:19)
[2025-05-22] MEDS: LIPITOR PO SCH (08:20)
[2025-05-22] MEDS: TRIGLIDE PO SCH (08:20)
[2025-05-22] MEDS: COZAAR PO SCH (08:20)
[2025-05-22] MEDS: SODIUM CHLORIDE 1,000 ML IV SCH (09:08)
[2025-05-22 10:14] LABS: OSMOLALITY 240.0 mOsm/kg (275-295)
--- NOTE | 2025-05-22 10:50 | DCSUM ---
Hospital Provider Hospital Provider: ROXANNA VILLARREAL, [facility] Primary Care Physician Primary Care Physician: GHASSAN HENNING MD Hospital Course Vital Signs: Most Recent Vital Signs Temperature 99.7 F 05/22/25 05:10 Temperature Source Oral 05/22/25 05:10 Temperature Source Infrared 05/21/25 09:05 Pulse Rate 74 05/22/25 05:10 Respiratory Rate 19 05/22/25 05:10 Blood Pressure 126/62 05/22/25 05:10 Blood Pressure Mean 83 05/22/25 05:10 Blood Pressure Left Arm 120/58 05/21/25 12:26 Blood Pressure Location Left Arm 05/22/25 05:10 Blood Pressure Position Supine 05/22/25 05:10 O2 Sat by Pulse Oximetry 93 L 05/22/25 05:10 Oxygen Delivery Method Room Air 05/22/25 08:00 Height 5 ft 05/21/25 12:26 Weight 45.2 kg 05/21/25 12:26 Telemetry Type Remote Telemetry 05/22/25 07:00 Telemetry Monitoring Continues 05/22/25 07:00 Telemetry Heart Rate 67 05/22/25 07:00 Telemetry SPO2 94 05/21/25 19:00 EKG [place] Interval 0.22 H 05/22/25 07:00 EKG QRS Interval 0.08 05/22/25 07:00 Telemetry Strip Reading SR with 1st degree AVB 05/22/25 07:00 Lab Results Last 24 Hours: 05/22/25 05/21/25 05/21/25 05:42 20:52 17:00 WBC 7.95 RBC 3.91 L Hgb 11.2 L Hct 32.6 L D MCV 83.4 MCH 28.6 MCHC 34.4 RDW Coeff of Keith 16.5 H Plt Count 346 Immature Gran % (Auto) 1.6 Neut % (Auto) 77.8 H Lymph % (Auto) 5.2 L [place] % (Auto) 15.1 H Eos % (Auto) 0.0 Baso % (Auto) 0.3 Neut # (Auto) 6.2 Lymph # (Auto) 0.4 L [place] # (Auto) 1.2 Eos # (Auto) 0.0 Baso # (Auto) 0.0 Immature Gran # (Auto) 0.1 Sodium 121.2 L 122.0 L 118.1 L* Potassium 3.66 3.75 3.91 Chloride 94.5 L 96.2 L 92.8 L Carbon Dioxide 15.7 L 13.5 L 15.1 L Anion Gap 14.66 16.05 14.11 BUN 10.8 13.8 17.1 H Creatinine 0.44 L 0.54 L 0.60 Estimated GFR (MDRD) 141.00 112.00 99.00 BUN/Creatinine Ratio 24.54 25.55 28.50 Glucose 84.9 80.5 77.9 Uric Acid Calcium 7.95 L 7.99 L 7.85 L Total Bilirubin 0.77 AST 40.6 H ALT 17.0 Alkaline Phosphatase 80.2 D Troponin I Total Protein 6.99 Albumin 3.47 L Globulin 3.52 Albumin/Globulin Ratio 0.98 Triglycerides Cholesterol LDL Cholesterol, Calc VLDL Cholesterol HDL Cholesterol Cholesterol/HDL Ratio Urine Color Urine Clarity Urine pH Ur Specific [place] Urine Protein Urine Glucose (UA) Urine Ketones Urine Blood Urine Nitrite Urine Bilirubin Urine Urobilinogen Ur Leukocyte Esterase Urine Microscopic RBC Urine Microscopic WBC Ur Squamous Epith Cells Urine Bacteria Influ A Molecular Assay Influ B Molecular Assay SARS CoV-2 RNA Rapid ABDIRIZAK 05/21/25 05/21/25 05/21/25 13:00 10:53 10:33 WBC RBC Hgb Hct MCV MCH MCHC RDW Coeff of Keith Plt Count Immature Gran % (Auto) Neut % (Auto) Lymph % (Auto) [place] % (Auto) Eos % (Auto) Baso % (Auto) Neut # (Auto) Lymph # (Auto) [place] # (Auto) Eos # (Auto) Baso # (Auto) Immature Gran # (Auto) Sodium 114.7 L* Potassium 3.89 Chloride 89.4 L Carbon Dioxide 14.6 L Anion Gap 14.59 BUN 19.8 H Creatinine 0.66 Estimated GFR (MDRD) 89.00 BUN/Creatinine Ratio 30.00 Glucose 89.4 Uric Acid 5.08 Calcium 7.72 L Total Bilirubin AST ALT Alkaline Phosphatase Troponin I Total Protein Albumin Globulin Albumin/Globulin Ratio Triglycerides 189.7 H Cholesterol 173.9 LDL Cholesterol, Calc 114 VLDL Cholesterol 38 H HDL Cholesterol 21.9 L Cholesterol/HDL Ratio 7.9 H Urine Color Yellow Urine Clarity Clear Urine pH 6.0 Ur Specific [place] 1.020 Urine Protein 3+ H Urine Glucose (UA) Negative Urine Ketones 1+ H Urine Blood 3+ H Urine Nitrite Positive H Urine Bilirubin 1+ H Urine Urobilinogen 1.0 H Ur Leukocyte Esterase 3+ H Urine Microscopic RBC 10-20 Urine Microscopic WBC 10-20 Ur Squamous Epith Cells 5-10 Urine Bacteria 1+ Influ A Molecular Assay Influ B Molecular Assay SARS CoV-2 RNA Rapid ABDIRIZAK 05/21/25 05/21/25 09:50 09:34 WBC 10.35 H RBC 4.70 Hgb 13.0 Hct 39.7 MCV 84.5 MCH 27.7 MCHC 32.7 RDW Coeff of Keith 16.4 H Plt Count 422 Immature Gran % (Auto) 2.6 Neut % (Auto) 85.6 H Lymph % (Auto) 4.4 L [place] % (Auto) 6.9 Eos % (Auto) 0.1 Baso % (Auto) 0.4 Neut # (Auto) 8.9 H Lymph # (Auto) 0.5 L [place] # (Auto) 0.7 Eos # (Auto) 0.0 Baso # (Auto) 0.0 Immature Gran # (Auto) 0.3 Sodium 112.7 L* Potassium 4.15 Chloride 82.7 L Carbon Dioxide 14.6 L Anion Gap 19.55 BUN 22.9 H Creatinine 0.81 Estimated GFR (MDRD) 70.00 BUN/Creatinine Ratio 28.27 Glucose 102.9 Uric Acid Calcium 9.00 Total Bilirubin 1.09 AST 48.2 H ALT 23.3 Alkaline Phosphatase 118.7 Troponin I < 0.012 Total Protein 9.04 H Albumin 4.51 Globulin 4.53 Albumin/Globulin Ratio 0.99 Triglycerides Cholesterol LDL Cholesterol, Calc VLDL Cholesterol HDL Cholesterol Cholesterol/HDL Ratio Urine Color Urine Clarity Urine pH Ur Specific [place] Urine Protein Urine Glucose (UA) Urine Ketones Urine Blood Urine Nitrite Urine Bilirubin Urine Urobilinogen Ur Leukocyte Esterase Urine Microscopic RBC Urine Microscopic WBC Ur Squamous Epith Cells Urine Bacteria Influ A Molecular Assay Negative by naat Influ B Molecular Assay Negative by naat SARS CoV-2 RNA Rapid ABDIRIZAK Negative Discharge Instructions Discharge Planning: Discharge Planning > 40 minutes If patient is discharged with left ventricular systolic dysfunction: Discharged with a beta cris? [] If no, why not? [] Discharged with an liyah/arb? [] If no, why not? [] Discharge Medications: Home Medications Acetaminophen (Acetaminophen 325 Mg Tablet) 650 mg PO Q4H PRN PRN Reason: Mild Pain Atorvastatin Calcium (Atorvastatin Calcium 20 Mg Tablet) 20 mg PO DAILY [facility] Last Admin: 05/22/25 08:20 Dose: 20 mg Fenofibrate (Fenofibrate 160 Mg Tablet) 160 mg PO DAILY [facility] Last Admin: 05/22/25 08:20 Dose: 160 mg CEFTRIAXONE/D5W 1 GM PREMIX (Rocephin 1 Gm/50 Ml D5w) 1 gm in 50 mls @ 100 mls/hr IV BEDTIME [facility] Stop: 05/24/25 20:59 Sodium Chloride (Sodium Chloride) 1,000 mls @ 75 mls/hr IV .[id number] [facility] Last Admin: 05/22/25 09:08 Dose: 75 mls/hr Losartan Potassium (Losartan Potassium 25 Mg Tablet) 25 mg PO DAILY [facility] Last Admin: 05/22/25 08:20 Dose: 25 mg Omeprazole (Omeprazole 20 Mg Capsule.Dr) 20 mg PO QDAC2 [facility] Last Admin: 05/22/25 05:24 Dose: 20 mg Ondansetron HCl (Ondansetron Hcl/Pf 4 Mg/2 Ml Sdv) 4 mg IVP Q6H PRN PRN Reason: Nausea / Vomiting Ropinirole HCl (Ropinirole Hcl 0.25 Mg Tablet) 0.25 mg PO DAILY [facility] Last Admin: 05/22/25 08:19 Dose: 0.25 mg Discharge Plan Discharge Activity Restrictions/Additional Instructions: Please follow-up with your primary care physician within the next 3-5 days for post ER follow-up, if not better. You can take [id number] ibuprofen or Tylenol per label instructions as needed for fever greater than 100.4 Fahrenheit or discomfort. You should drink plenty of clear fluids to help maintain your hydration status. You may return to the emergency department for any worsening of symptoms or any other emergency services needed. Prescriptions: New (DME) catheter 16 Fr misc See Rx Instructions .ROUTE Qty: 30 0RF Rx Instructions: As directed Aqua Lube Lubricant See Rx Instructions .ROUTE .COMPLEX Qty: 120 0RF Rx Instructions: Apply to catheter prior to insertion povidone-iodine 10 % swab See Rx Instructions .ROUTE .COMPLEX PRN (Reason: straight cath ) Qty: 500 0RF Rx Instructions: Cleanse yari area prior to straight cath No Action Diony Back and Body 1 EACH tablet 1 ea PO Q4-6H PRN (Reason: pain) atorvastatin 80 mg tablet See Rx Instructions .ROUTE .COMPLEX Qty: 30 2RF Dose Instruction: TAKE ONE TABLET DAILY Rx Instructions: TAKE ONE TABLET DAILY omeprazole 20 mg capsule,delayed release(DR/EC) See Rx Instructions .ROUTE .COMPLEX Qty: 30 2RF Dose Instruction: TAKE 1 CAPSULE DAILY Rx Instructions: TAKE 1 CAPSULE DAILY fenofibrate 160 mg tablet 160 mg PO QDAY Qty: 30 2RF alendronate 70 mg tablet See Rx Instructions .ROUTE .COMPLEX Qty: 12 5RF Dose Instruction: TAKE ONE TABLET ONCE A WEEK WITH 8 OZ OF WATER AT LEAST 30 MIN. BEFORE FIRST FOOD/BEVERAG/DRUG OF THE DAY AND DON'T LIE DOWN FOR 30 MINUTES TO ONE HOUR Rx Instructions: TAKE ONE TABLET ONCE A WEEK WITH 8 OZ OF WATER AT LEAST 30 MIN. BEFORE FIRST FOOD/BEVERAG/DRUG OF THE DAY AND DON'T LIE DOWN FOR 30 MINUTES TO ONE HOUR ropinirole 0.25 mg tablet 0.25 mg PO ONCE Qty: 30 5RF losartan 25 mg tablet 25 mg PO QDAY Qty: 30 2RF Condition: Stable Referrals: EVGENY KEY MD [STAFF PHYSICIAN, Family Practice] - 05/26/25 1:00 pm
--- NOTE | 2025-05-22 10:56 | PCM.PROG ---
Date/Time Seen Date Seen by Provider: 05/22/25 Time Seen by Provider: 09:10 Provider Provider[facility]OXAN[facility]ILL[facility]REAL[facility] Chief Complaint Chief Complaint: ACUTE HYPONATREMIA, DEHYDRATION Subjective Subjective: Still having some dizziness upon standing. Sodium slowly improving. Urine is dark/tea colored. Objective Appearance: Positive No Apparent Distress, Alert and Oriented x3, Ill-Appearing, Thin and Cachectic Chest/Lungs: Positive Symmetrical With Equal Breath Sounds, Clear to Auscultation Bilaterally and Good Air Movement all 4 Lung Schulte; Negative Rales, Rhonci or Wheezes Heart: Positive RRR and Pulses Normal GI/: Positive Soft, Nontender, Bowel Sounds Normal and No Distention Musculoskeletal: Positive Not Examined Neurological: Positive Sensation Intact, Motor intact, Reflexes Intact, Alert and Oriented Vital Signs Vital Signs: Vital Signs: Last 24 Hours 05/21/25 12:26 05/21/25 12:26 05/21/25 12:51 Temperature 97.9 F Temperature Source Oral Pulse Rate 63 Respiratory Rate 15 17 Blood Pressure Blood Pressure Mean Blood Pressure Left Arm 120/58 Blood Pressure Location Blood Pressure Position Supine O2 Sat by Pulse Oximetry 96 Oxygen Delivery Method Room Air Room Air Height 5 ft Weight 45.2 kg Telemetry Type Bedside Monitor Telemetry Monitoring Started Telemetry Heart Rate 67 Telemetry SPO2 96 EKG [place] Interval 0.20 EKG QRS Interval 0.06 Telemetry Strip Reading sr 05/21/25 14:00 05/21/25 18:00 05/21/25 19:00 Temperature 97.2 F L 98.2 F Temperature Source Temporal Artery Scan Temporal Artery Scan Pulse Rate 64 74 Respiratory Rate 18 21 H Blood Pressure 123/65 143/75 H Blood Pressure Mean 84 97 Blood Pressure Left Arm Blood Pressure Location Right Arm Left Arm Blood Pressure Position Supine Supine O2 Sat by Pulse Oximetry 98 95 Oxygen Delivery Method Room Air Room Air Height Weight Telemetry Type Remote Telemetry Telemetry Monitoring Continues Telemetry Heart Rate 69 Telemetry SPO2 94 EKG [place] Interval 0.23 H EKG QRS Interval 0.08 Telemetry Strip Reading SR W/ 1ST DEGREE AVB 05/21/25 19:54 05/21/25 21:20 05/22/25 01:00 Temperature 98.8 F Temperature Source Oral Pulse Rate 74 Respiratory Rate 23 H Blood Pressure 116/49 L Blood Pressure Mean 71 Blood Pressure Left Arm Blood Pressure Location Left Arm Blood Pressure Position Supine O2 Sat by Pulse Oximetry 95 Oxygen Delivery Method Room Air Room Air Height Weight Telemetry Type Remote Telemetry Telemetry Monitoring Continues Telemetry Heart Rate 66 Telemetry SPO2 EKG TN Interval 0.22 H EKG QRS Interval 0.09 Telemetry Strip Reading SR W/ 1ST DEGREE AVB 05/22/25 05:10 05/22/25 07:00 05/22/25 08:00 Temperature 99.7 F Temperature Source Oral Pulse Rate 74 Respiratory Rate 19 Blood Pressure 126/62 Blood Pressure Mean 83 Blood Pressure Left Arm Blood Pressure Location Left Arm Blood Pressure Position Supine O2 Sat by Pulse Oximetry 93 L Oxygen Delivery Method Room Air Room Air Height Weight Telemetry Type Remote Telemetry Telemetry Monitoring Continues Telemetry Heart Rate 67 Telemetry SPO2 EKG [place] Interval 0.22 H EKG QRS Interval 0.08 Telemetry Strip Reading SR with 1st degree AVB Lab Results Lab Results: Lab Results: Last 24 Hours 05/22/25 05/21/25 05/21/25 05:42 20:52 17:00 WBC 7.95 RBC 3.91 L Hgb 11.2 L Hct 32.6 L D MCV 83.4 MCH 28.6 MCHC 34.4 RDW Coeff of Keith 16.5 H Plt Count 346 Immature Gran % (Auto) 1.6 Neut % (Auto) 77.8 H Lymph % (Auto) 5.2 L [place] % (Auto) 15.1 H Eos % (Auto) 0.0 Baso % (Auto) 0.3 Neut # (Auto) 6.2 Lymph # (Auto) 0.4 L [place] # (Auto) 1.2 Eos # (Auto) 0.0 Baso # (Auto) 0.0 Immature Gran # (Auto) 0.1 Sodium 121.2 L 122.0 L 118.1 L* Potassium 3.66 3.75 3.91 Chloride 94.5 L 96.2 L 92.8 L Carbon Dioxide 15.7 L 13.5 L 15.1 L Anion Gap 14.66 16.05 14.11 BUN 10.8 13.8 17.1 H Creatinine 0.44 L 0.54 L 0.60 Estimated GFR (MDRD) 141.00 112.00 99.00 BUN/Creatinine Ratio 24.54 25.55 28.50 Glucose 84.9 80.5 77.9 Serum Osmolality Uric Acid Calcium 7.95 L 7.99 L 7.85 L Total Bilirubin 0.77 AST 40.6 H ALT 17.0 Alkaline Phosphatase 80.2 D Total Protein 6.99 Albumin 3.47 L Globulin 3.52 Albumin/Globulin Ratio 0.98 Triglycerides Cholesterol LDL Cholesterol, Calc VLDL Cholesterol HDL Cholesterol Cholesterol/HDL Ratio Urine Color Urine Clarity Urine pH Ur Specific [place] Urine Protein Urine Glucose (UA) Urine Ketones Urine Blood Urine Nitrite Urine Bilirubin Urine Urobilinogen Ur Leukocyte Esterase Urine Microscopic RBC Urine Microscopic WBC Ur Squamous Epith Cells Urine Bacteria 05/21/25 05/21/25 05/21/25 13:00 10:53 10:33 WBC RBC Hgb Hct MCV MCH MCHC RDW Coeff of Keith Plt Count Immature Gran % (Auto) Neut % (Auto) Lymph % (Auto) [place] % (Auto) Eos % (Auto) Baso % (Auto) Neut # (Auto) Lymph # (Auto) [place] # (Auto) Eos # (Auto) Baso # (Auto) Immature Gran # (Auto) Sodium 114.7 L* Potassium 3.89 Chloride 89.4 L Carbon Dioxide 14.6 L Anion Gap 14.59 BUN 19.8 H Creatinine 0.66 Estimated GFR (MDRD) 89.00 BUN/Creatinine Ratio 30.00 Glucose 89.4 Serum Osmolality 240.0 L Uric Acid 5.08 Calcium 7.72 L Total Bilirubin AST ALT Alkaline Phosphatase Total Protein Albumin Globulin Albumin/Globulin Ratio Triglycerides 189.7 H Cholesterol 173.9 LDL Cholesterol, Calc 114 VLDL Cholesterol 38 H HDL Cholesterol 21.9 L Cholesterol/HDL Ratio 7.9 H Urine Color Yellow Urine Clarity Clear Urine pH 6.0 Ur Specific [place] 1.020 Urine Protein 3+ H Urine Glucose (UA) Negative Urine Ketones 1+ H Urine Blood 3+ H Urine Nitrite Positive H Urine Bilirubin 1+ H Urine Urobilinogen 1.0 H Ur Leukocyte Esterase 3+ H Urine Microscopic RBC 10-20 Urine Microscopic WBC 10-20 Ur Squamous Epith Cells 5-10 Urine Bacteria 1+ Additional Comments Additional Comments: I have independently reviewed and interpreted the labs/EKGs/imaging ordered during this hospital stay. I have reviewed outside records that are available in our EMR that pertain to medical stay including imaging/notes/labs from previous visits. Active Medications Active Medications: Medications Generic Name Dose Route Start Last Admin Trade Name Freq PRN Reason Stop Dose Admin Acetaminophen 650 mg 05/21/25 10:45 Acetaminophen 325 Mg Tablet PO Q4H PRN Mild Pain Atorvastatin Calcium 20 mg 05/22/25 09:00 05/22/25 08:20 Atorvastatin Calcium 20 Mg Tablet PO 20 mg DAILY STACEY Administration Fenofibrate 160 mg 05/22/25 09:00 05/22/25 08:20 Fenofibrate 160 Mg Tablet PO 160 mg DAILY STACEY Administration CEFTRIAXONE/D5W 1 GM PREMIX 1 gm in 50 mls @ 100 mls/hr 05/22/25 21:00 Rocephin 1 Gm/50 Ml D5w IV 05/24/25 20:59 BEDTIME STACEY Sodium Chloride 1,000 mls @ 75 mls/hr 05/22/25 08:30 05/22/25 09:08 Sodium Chloride IV 75 mls/hr .[id number] STACEY Administration Losartan Potassium 25 mg 05/22/25 09:00 05/22/25 08:20 Losartan Potassium 25 Mg Tablet PO 25 mg DAILY STACEY Administration Omeprazole 20 mg 05/22/25 06:00 05/22/25 05:24 Omeprazole 20 Mg Capsule.Dr PO 20 mg QDAC2 STACEY Administration Ondansetron HCl 4 mg 05/21/25 10:45 Ondansetron Hcl/Pf 4 Mg/2 Ml Sdv IVP Q6H PRN Nausea / Vomiting Ropinirole HCl 0.25 mg 05/22/25 09:00 05/22/25 08:19 Ropinirole Hcl 0.25 Mg Tablet PO 0.25 mg DAILY STACEY Administration Plan Plan: 1. Hyponatremia, severe, symptomatic - unclear acuity, improving - continue to bring up slowly, stopped 3% hypertonic saline and started NS@75mL/hr, recheck bmp at 1300, Sent for uric acid, lipids, serum/urine osmol, urine sodium. Reviewed medications, no offenders noted. Could be from lack of intake. Seizure precautions. 2. Hyperlipidemia - Cont home meds 3. Hypertension - Cont home meds 4. GERD - Cont home meds 5. RLS - Cont home meds 6. UTI - urine culture growth of gram negative rods this am, culture from 05/12 showed serratia marcescens sensitive to rocephin, continue rocephin at this time 7. Neurogenic Bladder - has been inappropriately self-cathing and re-using the same catheter, solis was anchored yesterday, will discuss keeping solis vs removing at discharge, recommend urology to follow DVT Prophylaxis: Lovenox Review Statement Review Statement: I have personally discussed and reviewed the patient's visit/currently labs/imaging/decision making with Dr. Pandya, my supervising attending. Greater that 50 minutes spent with patient, 50% of the time spent with this patient was devoted to counseling and coordination of care.
[2025-05-22] MEDS: TYLENOL PO PRN (11:11)
[2025-05-22 14:57] LABS: CREATININE 0.41 mg/dL (0.60-1.30)
[2025-05-22] MEDS: ROCEPHIN 1 GM/50 ML D5W 1 GM/50 ML BAG IV SCH (20:27)
[2025-05-22 20:49] LABS: CREATININE 0.38 mg/dL (0.60-1.30)
[2025-05-22] MEDS: K-DUR PO ONE (21:26)
[2025-05-23] MEDS: SODIUM CHLORIDE 3% 500 ML IV SCH (00:23)
[2025-05-23 05:37] LABS: IMMATURE GRANULOCYTE # (AUTO) 0.1 (0.0-1.0); IMMATURE GRANULOCYTE % (AUTO) 1.3 % (0.0-5.0); RDW COEFFICIENT OF VARIATION 16.3 % (11.6-14.8)
[2025-05-23 05:49] LABS: CREATININE 0.37 mg/dL (0.60-1.30)
--- NOTE | 2025-05-23 11:16 | CT ---
EXAM: CT ABDOMEN AND PELVIS WITHOUT CONTRAST HISTORY: Hematuria. Abdominal and pelvic pain. TECHNIQUE: CT acquisition of the abdomen and pelvis from the lower thorax through the pelvis without IV contrast administration. 2-D coronal and sagittal reformatted images were obtained from the axial source images. Oral Contrast: None. CT Dose Reduction Techniques Performed: Yes. COMPARISON: CT chest 06/27/2015. No prior abdomen and pelvis CT. FINDINGS: Lower Thorax: Nodular focus appears to be present pleural based right lung 5 mm. This is similar dating back to 2014. There is another just inferior to this also present in 2015 3.8 mm very similar. Another is seen subpleural region 3.8 mm right middle lobe seen in 2015. Mild emphysematous changes are seen within the lungs. There is atelectasis medial inferior lung on the right and linear atelectasis or scar lower lung on the left. No other nodule or mass or consolidation. Heart is mildly prominent with trace pericardial fluid or thickening. Precardiac lymph node is similar to the prior measuring 1.4 x 1.0 cm. Visualized esophagus appears contracted but without focal abnormal finding. Liver: There appears to be upper limits of normal signs of the liver. No well- defined focal lesion though there is a lobular contour which can be seen in the setting of cirrhosis and should be correlated clinically. Biliary: Gallbladder is not seen and may be surgically absent. Common bile duct is upper limits of normal around 8 mm and tapers without focal lesion definitively seen. Pancreas: There is no evidence for definite focal lesion though there is some mild adjacent splenic artery calcification. Spleen: Spleen is borderline prominent with small granuloma. No focal abnormal findings. Adrenals: Diffuse prominence to the adrenal glands may be on the basis of hyperplasia. Well-defined nodule is not seen. Kidneys/Ureters: There is a benign-appearing cyst upper kidney on the right 3.9 cm. There is an adjacent tiny dense focus 5.6 mm. This could represent a hyperdense cyst but is not confirmed. Nonemergent ultrasound would be recommended. The kidney does appear prominent on the right without solid mass th ough there is hydronephrosis. Perinephric edema is seen. No definite intrarenal calculus. The ureter on the right is also prominent. No wall thickening or focal mass. The ureter on the left does appear to be prominent and fluid-filled without wall thickening or mass. There is hydronephrosis mildly on the left. Cyst 3.9 cm appears benign upper kidney on the left. Likely vascular calcifications of the kidney on the left without a dominant mass. Possible small cyst inferior aspect 6.7 mm. No intrarenal calculus. GI Tract: Stomach is contracted and poorly evaluated though I well-defined focal abnormal finding is not seen. If there is concern direct visualization is recommended. Duodenum does now demonstrate abnormal finding. Small bowel, as seen, has a normal appearance throughout. The colon demonstrates stool throughout and tortuosity with diverticulosis. No CT signs for diverticulitis definitively. Terminal ileum appears to be normal. Appendix is not seen. No secondary CT signs for appendicitis definitively. Peritoneal Cavity: No mass or fat stranding or free fluid or free air. Retroperitoneum: No fluid collection. Lymph Nodes: There is a Possible lymph node left periaortic region borderline prominent 1.3 x 1.0 cm. There is no other adenopathy identified definitively. Other nonenlarged lymph nodes are seen. Vasculature: Diffuse moderate to severe aortic calcifications. No aortic or iliac aneurysm within limitations of noncontrast examination. Pelvis: The patient appears to be status post hysterectomy without pelvic or adnexal mass or focal fluid collection. Bladder wall is prominent. There is internal [place] catheter. There is adjacent fat stranding within the pelvis about the bladder. Findings can be seen in the setting of cystitis and should be correlated clinically and with urinalysis. Bones/Soft Tissues: No fracture or lytic lesion. There is no significant focal soft tissue abnormality. Degenerative changes throughout the spine. Diffuse osteopenia. Degenerative changes of the hips and SI joints. No acute fracture or dislocation is seen. No lytic or blastic lesion. There is postoperative change L4 and L5 appearing intact without complication or failure. IMPRESSION: 1. Multiple nodules are seen on the right which appear to have been present and similar dating back to the 2015 CT and are felt to be benign. There are other chronic changes within the lungs with some atelectatic change or pneumonitis right lower lung. Heart is also borderline to mildly prominent with trace pericardial fluid or thickening. Coronary artery and aortic valvular calcifications. Esophagus is contracted without focal abnormal finding. 2. The liver has a lobular contour which can be seen in setting of cirrhosis though a well-defined focal lesion or abnormal finding is not definitively identified. This should be correlated clinically. 3. Bilateral renal cysts appear to be benign. There is perinephric edema bilaterally in the kidneys appears slightly enlarged. No suspicious mass though there is a small dense focus upper kidney near the larger cyst which could represent a hyperdense cyst but is not confirmed. Non emergent ultrasound would be recommended. 4. Bilateral kidneys demonstrate hydronephrosis slightly greater on the right without intrarenal calculus or obstructive uropathy. Both ureters appear to be dilated without definite wall thickening. This may be due to significant prominence to the bladder wall. This can be seen in setting of cystitis. Bladder is contracted however with internal Sierra catheter. No focal mass is seen. There is adjacent fat stranding. Please correlate clinically and with urinalysis. 5. Bowel throughout does not demonstrate acute process. Diverticulosis without diverticulitis. Appendix is not seen though no secondary CT signs for appendicitis are appreciated. Stomach is contracted. If there is concern direct visualization is recommended. 6. Diffuse vascular calcifications. 7. Borderline prominent lymph node could be reactive left periaortic region 1.3 x 1.0 cm. No other significant adenopathy or mass. 8. Bony degenerative changes with postoperative changes L4-L5 appearing intact without complication or failure. No fracture or dislocation. Diffuse osteopenia. Details and other findings, as above. Findings are discussed with the nurse practitioner in charge on 05/23/2025 at 10:55 a.m., with verification. All CT scans are performed using dose optimization techniques as appropriate to the performed exam and include at least one of the following: Automated exposure control, adjustment of the mA and/or kV according to size, and the use of iterative reconstruction technique.
[2025-05-23] MEDS ORDERED: SODIUM CHLORIDE 1,000 ML IV SCH (11:41)
--- NOTE | 2025-05-23 12:08 | PCM.PROG ---
Date/Time Seen Date Seen by Provider: 05/23/25 Time Seen by Provider: 08:45 Provider Provider: ROXANNA [facility]ILLARREAL, [facility] Chief Complaint Chief Complaint: ACUTE HYPONATREMIA, DEHYDRATION Subjective Subjective: Adamant about discharge today. Discussed labs are not back to normal and now urine is blood tinged. Discussed need for CT scan of abdomen to r/o other etiologies especially with her cancer history and neurogenic bladder. CT showed hydronephrosis without obstruction, enlarged ureters, and stranding of bladder consistent with cystitis. Discussed importance of continuing IV fluids and antibiotics. Verbalized understanding and is not planning to sign out AMA at this time. Objective Appearance: Positive No Apparent Distress, Alert and Oriented x3, Ill-Appearing, Thin and Cachectic Chest/Lungs: Positive Symmetrical With Equal Breath Sounds, Clear to Auscultation Bilaterally and Good Air Movement all 4 Lung Schulte; Negative Rales, Rhonci or Wheezes Heart: Positive RRR and Pulses Normal GI/: Positive Soft, Nontender, Bowel Sounds Normal and No Distention Musculoskeletal: Positive Not Examined Neurological: Positive Sensation Intact, Motor intact, Reflexes Intact, Alert and Oriented Additional Findings: Solis catheter patent and draining bloody urine Vital Signs Vital Signs: Vital Signs: Last 24 Hours 05/22/25 13:00 05/22/25 14:00 05/22/25 19:00 Temperature 97.7 F Temperature Source Oral Pulse Rate 63 Pulse Rate [Apical] Respiratory Rate 18 Blood Pressure 115/52 L Blood Pressure Mean 73 Blood Pressure Location Right Arm Blood Pressure Position Supine O2 Sat by Pulse Oximetry 96 Oxygen Delivery Method Room Air Telemetry Type Remote Telemetry Bedside Monitor Telemetry Monitoring Continues Continues Telemetry Heart Rate 57 L 69 Telemetry SPO2 EKG MN Interval 0.24 H 0.26 H EKG QRS Interval 0.10 0.07 Telemetry Strip Reading SB with 1st degree AVB SR WITH 1ST DEGREE AVB 05/22/25 20:00 05/22/25 22:00 05/23/25 01:00 Temperature 97.8 F Temperature Source Tympanic Pulse Rate 73 Pulse Rate [Apical] Respiratory Rate 20 Blood Pressure 107/59 L Blood Pressure Mean 75 Blood Pressure Location Right Arm Blood Pressure Position Supine O2 Sat by Pulse Oximetry 94 L Oxygen Delivery Method Room Air Room Air Telemetry Type Bedside Monitor Telemetry Monitoring Continues Telemetry Heart Rate 66 Telemetry SPO2 94 EKG MN Interval 0.22 H EKG QRS Interval 0.05 L Telemetry Strip Reading SR WITH 1ST DEGREE AVB 05/23/25 05:30 05/23/25 07:00 05/23/25 08:00 Temperature 98.2 F Temperature Source Temporal Artery Scan Pulse Rate 66 Pulse Rate [Apical] 76 Respiratory Rate 16 20 Blood Pressure 113/53 L Blood Pressure Mean 73 Blood Pressure Location Left Arm Blood Pressure Position Supine O2 Sat by Pulse Oximetry 95 Oxygen Delivery Method Room Air Room Air Telemetry Type Bedside Monitor Telemetry Monitoring Continues Telemetry Heart Rate 71 Telemetry SPO2 95 EKG MN Interval 0.20 EKG QRS Interval 0.08 Telemetry Strip Reading NSR Lab Results Lab Results: Lab Results: Last 24 Hours 05/23/25 05/22/25 05/22/25 05:30 20:25 14:35 WBC 5.46 RBC 3.59 L Hgb 10.0 L Hct 30.5 L MCV 85.0 MCH 27.9 MCHC 32.8 RDW Coeff of Keith 16.3 H Plt Count 287 Immature Gran % (Auto) 1.3 Neut % (Auto) 71.5 Lymph % (Auto) 10.1 [place] % (Auto) 16.7 H Eos % (Auto) 0.2 Baso % (Auto) 0.2 Neut # (Auto) 3.9 Lymph # (Auto) 0.6 [place] # (Auto) 0.9 Eos # (Auto) 0.0 Baso # (Auto) 0.0 Immature Gran # (Auto) 0.1 Sodium 126.0 L 124.4 L 120.7 L Potassium 3.94 3.47 L 3.59 Chloride 100.6 96.2 L 95.1 L Carbon Dioxide 21.8 L 21.1 L 19.8 L Anion Gap 7.54 10.57 9.39 BUN 5.3 L 5.7 L 8.1 Creatinine 0.37 L 0.38 L 0.41 L Estimated GFR (MDRD) 173.00 167.00 153.00 BUN/Creatinine Ratio 14.32 15.00 19.75 Glucose 86.9 98.1 99.3 Calcium 7.52 L 7.85 L 7.74 L Total Bilirubin 0.54 AST 43.5 H ALT 16.4 Alkaline Phosphatase 74.8 Total Creatine Kinase 55.1 Total Protein 6.27 L Albumin 3.09 L Globulin 3.18 Albumin/Globulin Ratio 0.97 Additional Comments Additional Comments: I have independently reviewed and interpreted the labs/EKGs/imaging ordered during this hospital stay. I have reviewed outside records that are available in our EMR that pertain to medical stay including imaging/notes/labs from previous visits. Active Medications Active Medications: Medications Generic Name Dose Route Start Last Admin Trade Name Freq PRN Reason Stop Dose Admin Acetaminophen 650 mg 05/21/25 10:45 05/22/25 11:11 Acetaminophen 325 Mg Tablet PO 650 mg Q4H PRN Administration Mild Pain Atorvastatin Calcium 20 mg 05/22/25 09:00 05/23/25 08:37 Atorvastatin Calcium 20 Mg Tablet PO 20 mg DAILY STACEY Administration Fenofibrate 160 mg 05/22/25 09:00 05/23/25 08:37 Fenofibrate 160 Mg Tablet PO 160 mg DAILY STACEY Administration CEFTRIAXONE/D5W 1 GM PREMIX 1 gm in 50 mls @ 100 mls/hr 05/22/25 21:00 05/22/25 20:27 Rocephin 1 Gm/50 Ml D5w IV 05/24/25 20:59 100 mls/hr BEDTIME STACEY Administration Sodium Chloride 1,000 mls @ 100 mls/hr 05/23/25 11:41 Sodium Chloride IV .Q10H STACEY Losartan Potassium 25 mg 05/22/25 09:00 05/23/25 08:37 Losartan Potassium 25 Mg Tablet PO 25 mg DAILY STACEY Administration Omeprazole 20 mg 05/22/25 06:00 05/23/25 05:10 Omeprazole 20 Mg Capsule.Dr PO 20 mg QDAC2 STACEY Administration Ondansetron HCl 4 mg 05/21/25 10:45 Ondansetron Hcl/Pf 4 Mg/2 Ml Sdv IVP Q6H PRN Nausea / Vomiting Ropinirole HCl 0.25 mg 05/22/25 09:00 05/23/25 08:37 Ropinirole Hcl 0.25 Mg Tablet PO 0.25 mg DAILY STACEY Administration Sodium Chloride 1 gm 05/23/25 11:45 Sodium Chloride 1 Gm Tablet PO TID STACEY Plan Plan: 1. Hyponatremia, severe, symptomatic - improving, up to 125.6 switching fluids due to hydronephrosis, start salt tabs, uric acid and osmolalities unremarkable 2. Hydronephrosis without obstruction - NS@100mL/hr, strict I&O, encourage oral intake 3. Hyperlipidemia - Cont home meds 4. Hypertension - Cont home meds 5. GERD - Cont home meds 6. RLS - Cont home meds 7. UTI - culture from 05/12 and recent culture showed serratia marcescens sensitive to rocephin, continue rocephin 8. Neurogenic Bladder - has been inappropriately self-cathing and re-using the same catheter, solis anchored, referred to [facility] [place] DVT Prophylaxis: Lovenox Review Statement Review Statement: I have personally discussed and reviewed the patient's visit/currently labs/imaging/decision making with Dr. Pandya, my supervising attending. Greater that 50 minutes spent with patient, 50% of the time spent with this patient was devoted to counseling and coordination of care.
[2025-05-23] MEDS: SODIUM CHLORIDE 1,000 ML IV SCH (12:14)
[2025-05-23] MEDS: SODIUM CHLORIDE PO SCH (12:19)
[2025-05-23] MEDS: TORADOL IVP STA (19:29)
[2025-05-23 20:26] LABS: CREATININE 0.3 mg/dL (0.60-1.30)
[2025-05-23] MEDS: SODIUM CHLORIDE 0.9%-KCL 20 MEQ 1,000 ML IV SCH (22:40)
[2025-05-23] MEDS: K-DUR PO ONE (22:42)
[2025-05-24 05:17] LABS: IMMATURE GRANULOCYTE # (AUTO) 0.1 (0.0-1.0); IMMATURE GRANULOCYTE % (AUTO) 1.0 % (0.0-5.0); RDW COEFFICIENT OF VARIATION 16.8 % (11.6-14.8)
[2025-05-24 05:39] LABS: CREATININE 0.37 mg/dL (0.60-1.30)
--- NOTE | 2025-05-24 10:48 | PCM.PROG ---
Date/Time Seen Date Seen by Provider: 05/24/25 Time Seen by Provider: 08:30 Provider Provider: ROXANNA VILLARREAL, [facility] Chief Complaint Chief Complaint: ACUTE HYPONATREMIA, DEHYDRATION Subjective Subjective: States she is feeling some better today. No complaints or concerns at this time. Discussed labs and improvements. Urine more clear in tubing this am. Objective Appearance: Positive No Apparent Distress, Alert and Oriented x3, Ill-Appearing, Thin and Cachectic Chest/Lungs: Positive Symmetrical With Equal Breath Sounds, Clear to Auscultation Bilaterally and Good Air Movement all 4 Lung Schulte; Negative Rales, Rhonci or Wheezes Heart: Positive RRR and Pulses Normal GI/: Positive Soft, Nontender, Bowel Sounds Normal, No Distention and No Organomegaly Musculoskeletal: Positive Not Examined Neurological: Positive Sensation Intact, Motor intact, Reflexes Intact, Alert and Oriented Vital Signs Vital Signs: Vital Signs: Last 24 Hours 05/23/25 13:00 05/23/25 14:00 05/23/25 19:00 Temperature 97.9 F Temperature Source Temporal Artery Scan Pulse Rate 79 Respiratory Rate 14 Blood Pressure 118/73 Blood Pressure Mean 88 Blood Pressure Location Left Arm Blood Pressure Position Supine O2 Sat by Pulse Oximetry 96 Oxygen Delivery Method Room Air Telemetry Type Bedside Monitor Remote Telemetry Telemetry Monitoring Continues Continues Telemetry Heart Rate 62 67 Telemetry SPO2 95 95 EKG FL Interval 0.20 0.18 EKG QRS Interval 0.08 0.06 Telemetry Strip Reading NSR SR 05/23/25 20:00 05/23/25 21:35 05/24/25 01:00 Temperature 98.4 F Temperature Source Oral Pulse Rate 56 L Respiratory Rate 17 Blood Pressure 124/67 Blood Pressure Mean 86 Blood Pressure Location Left Arm Blood Pressure Position Supine O2 Sat by Pulse Oximetry 94 L Oxygen Delivery Method Room Air Room Air Telemetry Type Remote Telemetry Telemetry Monitoring Continues Telemetry Heart Rate 71 Telemetry SPO2 97 EKG FL Interval 0.20 EKG QRS Interval 0.07 Telemetry Strip Reading SR 05/24/25 05:16 05/24/25 07:00 05/24/25 08:00 Temperature 98.9 F Temperature Source Oral Pulse Rate 67 Respiratory Rate 16 Blood Pressure 123/54 L Blood Pressure Mean 77 Blood Pressure Location Left Arm Blood Pressure Position Supine O2 Sat by Pulse Oximetry 97 Oxygen Delivery Method Room Air Room Air Telemetry Type Remote Telemetry Telemetry Monitoring Continues Telemetry Heart Rate 67 Telemetry SPO2 95 EKG FL Interval 0.22 H EKG QRS Interval 0.06 Telemetry Strip Reading SR w/ 1st degree avb Lab Results Lab Results: Lab Results: Last 24 Hours 05/24/25 05/23/25 05/21/25 05:13 20:09 10:53 WBC 4.81 RBC 3.38 L Hgb 9.6 L Hct 29.5 L MCV 87.3 MCH 28.4 MCHC 32.5 RDW Coeff of Keith 16.8 H Plt Count 272 Immature Gran % (Auto) 1.0 Neut % (Auto) 69.1 Lymph % (Auto) 13.7 [place] % (Auto) 15.2 H Eos % (Auto) 0.8 Baso % (Auto) 0.2 Neut # (Auto) 3.3 Lymph # (Auto) 0.7 [place] # (Auto) 0.7 Eos # (Auto) 0.0 Baso # (Auto) 0.0 Immature Gran # (Auto) 0.1 Sodium 129.1 L 128.1 L Potassium 4.10 3.29 L Chloride 104.2 103.5 Carbon Dioxide 24.0 21.3 L Anion Gap 5.00 6.59 BUN 6.3 L 4.9 L Creatinine 0.37 L 0.30 L Estimated GFR (MDRD) 173.00 220.00 BUN/Creatinine Ratio 17.02 16.33 Glucose 94.8 D 171.2 H D Calcium 7.30 L 7.47 L Total Bilirubin 0.42 AST 56.6 H ALT 20.3 Alkaline Phosphatase 64.0 Total Protein 5.76 L Albumin 2.69 L Globulin 3.07 Albumin/Globulin Ratio 0.87 Ur Random Sodium 40 Additional Comments Additional Comments: I have independently reviewed and interpreted the labs/EKGs/imaging ordered during this hospital stay. I have reviewed outside records that are available in our EMR that pertain to medical stay including imaging/notes/labs from previous visits. Active Medications Active Medications: Medications Generic Name Dose Route Start Last Admin Trade Name Freq PRN Reason Stop Dose Admin Acetaminophen 650 mg 05/21/25 10:45 05/24/25 10:26 Acetaminophen 325 Mg Tablet PO 650 mg Q4H PRN Administration Mild Pain Atorvastatin Calcium 20 mg 05/22/25 09:00 05/24/25 08:09 Atorvastatin Calcium 20 Mg Tablet PO 20 mg DAILY STACEY Administration Cefuroxime Axetil 200 mg 05/24/25 17:00 Cefpodoxime Proxetil 200 Mg Tablet PO 05/31/25 07:31 [id number] STACEY Fenofibrate 160 mg 05/22/25 09:00 05/24/25 08:10 Fenofibrate 160 Mg Tablet PO 160 mg DAILY STACEY Administration CEFTRIAXONE/D5W 1 GM PREMIX 1 gm in 50 mls @ 100 mls/hr 05/22/25 21:00 05/23/25 20:45 Rocephin 1 Gm/50 Ml D5w IV 05/24/25 20:59 100 mls/hr BEDTIME STACEY Administration Potassium Chloride/Sodium Chloride 1,000 mls @ 100 mls/hr 05/23/25 21:00 05/24/25 08:47 Sodium Chloride 0.9%-Kcl 20 Meq IV 100 mls/hr .Q10H STACEY Administration Losartan Potassium 25 mg 05/22/25 09:00 05/24/25 08:10 Losartan Potassium 25 Mg Tablet PO 25 mg DAILY STACEY Administration Omeprazole 20 mg 05/22/25 06:00 05/24/25 05:19 Omeprazole 20 Mg Capsule.Dr PO 20 mg QDAC2 STACEY Administration Ondansetron HCl 4 mg 05/21/25 10:45 Ondansetron Hcl/Pf 4 Mg/2 Ml Sdv IVP Q6H PRN Nausea / Vomiting Ropinirole HCl 0.25 mg 05/22/25 09:00 05/24/25 08:10 Ropinirole Hcl 0.25 Mg Tablet PO 0.25 mg DAILY STACEY Administration Sodium Chloride 1 gm 05/23/25 11:45 05/24/25 08:09 Sodium Chloride 1 Gm Tablet PO 1 gm TID STACEY Administration Plan Plan: 1. Hyponatremia, severe, symptomatic - improving, up to 129.1 this am, continue salt tabs, uric acid and osmolalities unremarkable 2. Hydronephrosis without obstruction - continue NS@100mL/hr, strict I&O, encourage oral intake 3. Hyperlipidemia - Cont home meds 4. Hypertension - Cont home meds 5. GERD - Cont home meds 6. RLS - Cont home meds 7. UTI, complicated - culture from 05/12 and recent culture showed serratia marcescens sensitive to rocephin, completes 3 day course of rocephin today - will transition to cefpodime PO and treat for total course of 10 days 8. Neurogenic Bladder - has been inappropriately self-cathing and re-using the same catheter, solis anchored, referred to [facility] 9. Anemia - hematuria noted yesterday, improving today, hemoglobin down to 9 today, no tachycardia or symptoms, may be dilutional as well from IVF, monitor for worsening hematuria, transfuse if <7. DVT Prophylaxis: Ambulation Review Statement Review Statement: I have personally discussed and reviewed the patient's visit/currently labs/imaging/decision making with Dr. Pandya, my supervising attending. Greater that 50 minutes spent with patient, 50% of the time spent with this patient was devoted to counseling and coordination of care.
[2025-05-24 13:51] LABS: CREATININE 0.36 mg/dL (0.60-1.30)
[2025-05-24] MEDS: CEFPODOXIME PROXETIL PO SCH (16:57)
[2025-05-25 05:15] VITALS: RESP 18
[2025-05-25 05:31] LABS: IMMATURE GRANULOCYTE # (AUTO) 0.0 (0.0-1.0); IMMATURE GRANULOCYTE % (AUTO) 0.7 % (0.0-5.0); RDW COEFFICIENT OF VARIATION 16.6 % (11.6-14.8)
[2025-05-25 05:45] LABS: CREATININE 0.29 mg/dL (0.60-1.30)
--- NOTE | 2025-05-25 09:34 | DCSUM ---
Admission Date Admission Date: 05/21/25 Discharge Date Discharge Date: 05/25/25 Admission Diagnosis Admission Diagnosis: 1. Hyponatremia, severe, symptomatic 2. UTI Discharge Diagnosis Discharge Diagnosis: 1. Hyponatremia, severe, symptomatic - Improved, stable at 128 2. Hydronephrosis without obstruction - Improving, no further hematuria, good urine output on discharge 3. Hyperlipidemia - Chronic, stable 4. Hypertension - Chronic, stable 5. GERD - Chronic, stable 6. RLS - Chronic, stable 7. UTI, complicated - culture from 05/12 and recent culture showed serratia marcescens sensitive to rocephin, completes 3 day course of rocephin - transitioned to cefpodime for total course of 10 days 8. Neurogenic Bladder - has been inappropriately self-cathing and re-using the same catheter, solis anchored, referred to [facility] 9. Anemia - hematuria noted 2 days ago, resolved, hemoglobin stable at 9.7, no tachycardia or symptoms, may also be dilutional as well from IVF Hospital Provider Hospital Provider: ROXANNA VILLARREAL, [facility] Primary Care Physician Primary Care Physician: GHASSAN HENNING MD Summary of History and Physical Summary of History and Physical: Patient is a 69-year-old female with past medical history of hyperlipidemia, hypertension, GERD, restless leg syndrome, aortic regurg, COPD, osteoporosis who presented to the ER with overall weakness and not feeling well. She was recently diagnosed with a UTI and prescribed Keflex. She states she was able to finish most of it except for 3 doses. She has continued to not feel well and have significant dizziness. She states she had 1 episode of vomiting this morning. States she has not ate or drank much. She has been alert and oriented. In the ER she was found to have a sodium level of 112. Historically it has been in the 140s. No recent labs in the last few months to compare to. No new medications recently other than the keflex. Urinalysis still significant for UTI. Zosyn given in ER started on 3% hypertonic saline. Admitted to [facility]. Hospital Course Subjective: 05/22/25 Still having some dizziness upon standing. Urine is dark/tea colored. Up to 121.2 this am. Stopped 3% saline to prevent quick correction. Started NS@75mL/hr due to dark urine. Serial BMP completed and was up to 124.4 Sent for uric acid, lipids, serum/urine osmol, urine sodium. Reviewed medications, no offenders noted. Could be from lack of intake. Seizure precautions. Urine culture growth of gram negative rods this am, culture from 05/12 showed serratia marcescens sensitive to rocephin, continue rocephin at this time Has been inappropriately self-cathing and re-using the same catheters since 2008 when she had her hysterectomy. PCP was unaware patient self-caths. Has not ever been prescribed catheters. Solis was anchored yesterday. Refer to Urology. 05/23/25 [place] about discharge today. Discussed labs are not back to normal and now urine is blood tinged. Discussed need for CT scan of abdomen to r/o other etiologies especially with her cancer history and neurogenic bladder. CT showed hydronephrosis without obstruction, enlarged ureters, and stranding of bladder consistent with cystitis. Discussed importance of continuing IV fluids and antibiotics. Verbalized understanding and is not planning to sign out AMA at this time. Sodium up to 125.6. NS@100mL/hr for hydronephrosis. Started salt tabs for hyponatremia. Uric acid and osmolalities unremarkable Urine culture from 05/12 and recent culture showed serratia marcescens sensitive to rocephin, continue rocephin 05/24/25 States she is feeling some better today. No complaints or concerns at this time. Discussed labs and improvements. Urine more clear in tubing this am. Sodium up to 129.1. Continued salt tabs. Continued fluids. Completes 3 day course of rocephin today - will transition to cefpodoxime PO and treat for total course of 10 days Anemia - hematuria noted yesterday, improving today, hemoglobin down to 9.6, no tachycardia or symptoms, may be dilutional as well from IVF, monitor for worsening hematuria, transfuse if <7. 05/25/25 Sodium remaining stable at 128-129. Patient asymptomatic and feeling much better today. Will d/c home with salt tabs QID and PCP to repeat level. Hemoglobin stable at 9.7. Likely caused from hematuria and dilutional from IVF. Recommend PCP repeating CBC as well. Rx sent for rest of course of cefpodoxime for total course of 10 days due to com plicated UTI. Urine clear straw colored this am. Referred to [facility]. Solis catheter to remain. Discussed cath care and home health or urology to change when due. Appearance: Pleasant, No Apparent Distress and Alert HEENT: MMM, Supple and No JVD CVS: No Murmur and No Rubs Abdomen: Soft and Non-Tender Respiratory: No Dyspnea Extremities: No Edema Vital Signs: Most Recent Vital Signs Temperature 98.4 F 05/25/25 05:14 Temperature Source Temporal Artery Scan 05/25/25 05:14 Temperature Source Infrared 05/21/25 09:05 Pulse Rate 66 05/25/25 05:14 Respiratory Rate 18 05/25/25 05:14 Blood Pressure 134/71 05/25/25 05:14 Blood Pressure Mean 92 05/25/25 05:14 Blood Pressure Left Arm 120/58 05/21/25 12:26 Blood Pressure Location Right Arm 05/25/25 05:14 Blood Pressure Position Supine 05/25/25 05:14 O2 Sat by Pulse Oximetry 96 05/25/25 05:14 Oxygen Delivery Method Room Air 05/25/25 05:14 Height 5 ft 05/21/25 12:26 Weight 45.2 kg 05/21/25 12:26 Telemetry Type Bedside Monitor 05/25/25 07:00 Telemetry Monitoring Continues 05/25/25 07:00 Irregular Telemetry Rate (Approximate) 60-70 BPM 05/25/25 07:00 Telemetry Heart Rate 67 05/25/25 07:00 Telemetry SPO2 93 05/25/25 01:00 EKG ND Interval 0.25 H 05/25/25 07:00 EKG QRS Interval 0.05 L 05/25/25 07:00 Telemetry Strip Reading 1st degree AV block 05/25/25 07:00 Imaging: EXAM: CT HEAD WITHOUT CONTRAST. FINDINGS: The ventricles, basal cisterns and sulci are normal in size, shape and configuration for the patient's age. There is no evidence of an acute intracranial hemorrhage. No mass effect or shift of the midline. No abnormal extra-axial fluid collections are identified. Decreased attenuation along the periventricular/deep white matter suggesting mild changes of chronic microvascular ischemic disease. 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 Gar-white differentiation is within normal limits. Bony calvarium is unremarkable. Scalp and soft tissues are unremarkable. The visualized paranasal sinuses are well-aerated. Vascular calcifications. IMPRESSION: No acute intra-cranial abnormality. Chronic findings as detailed above. EXAM: CT ABDOMEN AND PELVIS WITHOUT CONTRAST FINDINGS: Lower Thorax: Nodular focus appears to be present pleural based right lung 5 mm. This is similar dating back to 2015. There is another just inferior to this also present in 2015 3.8 mm very similar. Another is seen subpleural region 3.8 mm right middle lobe seen in 2015. Mild emphysematous changes are seen within the lungs. There is atelectasis medial inferior lung on the right and linear atelectasis or scar lower lung on the left. No other nodule or mass or consolidation. Heart is mildly prominent with trace pericardial fluid or thickening. Precardiac lymph node is similar to the prior measuring 1.4 x 1.0 cm. Visualized esophagus appears contracted but without focal abnormal finding. Liver: There appears to be upper limits of normal signs of the liver. No well- defined focal lesion though there is a lobular contour which can be seen in the setting of cirrhosis and should be correlated clinically. Biliary: Gallbladder is not seen and may be surgically absent. Common bile duct is upper limits of normal around 8 mm and tapers without focal lesion definitively seen. Pancreas: There is no evidence for definite focal lesion though there is some mild adjacent splenic artery calcification. Spleen: Spleen is borderline prominent with small granuloma. No focal abnormal findings. Adrenals: Diffuse prominence to the adrenal glands may be on the basis of hyperplasia. Well-defined nodule is not seen. Kidneys/Ureters: There is a benign-appearing cyst upper kidney on the right 3.9 cm. There is an adjacent tiny dense focus 5.6 mm. This could represent a hyperdense cyst but is not confirmed. Nonemergent ultrasound would be recommended. The kidney does appear prominent on the right without solid mass though there is hydronephrosis. Perinephric edema is seen. No definite intrarenal calculus. The ureter on the right is also prominent. No wall thickening or focal mass. The ureter on the left does appear to be prominent and fluid-filled without wall thickening or mass. There is hydronephrosis mildly on the left. Cyst 3.9 cm appears benign upper kidney on the left. Likely vascular calcifications of the kidney on the left without a dominant mass. Possible small cyst inferior aspect 6.7 mm. No intrarenal calculus. GI Tract: Stomach is contracted and poorly evaluated though I well-defined focal abnormal finding is not seen. If there is concern direct visualization is recommended. Duodenum does now demonstrate abnormal finding. Small bowel, as seen, has a normal appearance throughout. The colon demonstrates stool throughout and tortuosity with diverticulosis. No CT signs for diverticulitis definitively. Terminal ileum appears to be normal. Appendix is not seen. No secondary CT signs for appendicitis definitively. Peritoneal Cavity: No mass or fat stranding or free fluid or free air. Retroperitoneum: No fluid collection. Lymph Nodes: There is a Possible lymph node left periaortic region borderline prominent 1.3 x 1.0 cm. There is no other adenopathy identified definitively. Other nonenlarged lymph nodes are seen. Vasculature: Diffuse moderate to severe aortic calcifications. No aortic or iliac aneurysm within limitations of noncontrast examination. Pelvis: The patient appears to be status post hysterectomy without pelvic or adnexal mass or focal fluid collection. Bladder wall is prominent. There is internal Solis catheter. There is adjacent fat stranding within the pelvis about the bladder. Findings can be seen in the setting of cystitis and should be correlated clinically and with urinalysis. Bones/Soft Tissues: No fracture or lytic lesion. There is no significant focal soft tissue abnormality. Degenerative changes throughout the spine. Diffuse osteopenia. Degenerative changes of the hips and SI joints. No acute fracture or dislocation is seen. No lytic or blastic lesion. There is postoperative change L4 and L5 appearing intact without complication or failure. IMPRESSION: 1. Multiple nodules are seen on the right which appear to have been present and similar dating back to the 2015 CT and are felt to be benign. There are other chronic changes within the lungs with some atelectatic change or pneumonitis right lower lung. Heart is also borderline to mildly prominent with trace pericardial fluid or thickening. Coronary artery and aortic valvular calcifications. Esophagus is contracted without focal abnormal finding. 2. The liver has a lobular contour which can be seen in setting of cirrhosis though a well-defined focal lesion or abnormal finding is not definitively identified. This should be correlated clinically. 3. Bilateral renal cysts appear to be benign. There is perinephric edema bilaterally in the kidneys appears slightly enlarged. No suspicious mass though there is a small dense focus upper kidney near the larger cyst which could represent a hyperdense cyst but is not confirmed. Non emergent ultrasound would be recommended. 4. Bilateral kidneys demonstrate hydronephrosis slightly greater on the right without intrarenal calculus or obstructive uropathy. Both ureters appear to be dilated without definite wall thickening. This may be due to significant prominence to the bladder wall. This can be seen in setting of cystitis. Bladder is contracted however with internal Solis catheter. No focal mass is seen. There is adjacent fat stranding. Please correlate clinically and with urinalysis. 5. Bowel throughout does not demonstrate acute process. Diverticulosis without diverticulitis. Appendix is not seen though no secondary CT signs for appendicitis are appreciated. Stomach is contracted. If there is concern direct visualization is recommended. 6. Diffuse vascular calcifications. 7. Borderline prominent lymph node could be reactive left periaortic region 1.3 x 1.0 cm. No other significant adenopathy or mass. 8. Bony degenerative changes with postoperative changes L4-L5 appearing intact without complication or failure. No fracture or dislocation. Diffuse osteopenia. Details and other findings, as above. Lab Results Last 24 Hours: 05/25/25 05/24/25 05:26 13:18 WBC 4.39 L RBC 3.42 L Hgb 9.7 L Hct 29.3 L MCV 85.7 MCH 28.4 MCHC 33.1 RDW Coeff of Keith 16.6 H Plt Count 274 Immature Gran % (Auto) 0.7 Neut % (Auto) 68.8 Lymph % (Auto) 15.9 [place] % (Auto) 13.9 H Eos % (Auto) 0.5 Baso % (Auto) 0.2 Neut # (Auto) 3.0 Lymph # (Auto) 0.7 [place] # (Auto) 0.6 Eos # (Auto) 0.0 Baso # (Auto) 0.0 Immature Gran # (Auto) 0.0 Sodium 128.2 L 128.4 L Potassium 3.79 4.32 Chloride 103.0 104.8 Carbon Dioxide 22.5 19.9 L Anion Gap 6.49 8.02 BUN 2.4 L 4.8 L Creatinine 0.29 L 0.36 L Estimated GFR (MDRD) 229.00 178.00 BUN/Creatinine Ratio 8.27 13.33 Glucose 96.5 D 155.0 H D Calcium 7.55 L 7.31 L Total Bilirubin 0.58 AST 42.0 H ALT 18.7 Alkaline Phosphatase 59.6 Total Protein 5.70 L Albumin 2.66 L Globulin 3.04 Albumin/Globulin Ratio 0.87 Discharge Instructions Discharge Planning: Discharge Planning > 40 minutes If patient is discharged with left ventricular systolic dysfunction: na Discharged with a beta cris? [] If no, why not? [] Discharged with an liyah/arb? [] If no, why not? [] Discharge Medications: Medications at Discharge (Home Meds & RX) aspirin-caffeine 500 mg-32.5 mg tablet (Diony Back and Body) 1 ea PO Q4-6H PRN pain 01/31/15 atorvastatin 80 mg tablet See Rx Instructions .Route .COMPLEX #30 ea 12/01/22 alendronate 70 mg tablet See Rx Instructions .Route .COMPLEX #12 tabs 04/06/25 fenofibrate 160 mg tablet 160 mg PO QDAY #30 tabs 04/06/25 omeprazole 20 mg capsule,delayed release See Rx Instructions .Route .COMPLEX #30 caps 04/06/25 ropinirole 0.25 mg tablet 0.25 mg PO ONCE #30 tabs 04/06/25 losartan 25 mg tablet 25 mg PO QDAY #30 tabs 05/09/25 cefpodoxime 200 mg tablet 200 mg PO BIDWM2 #11 tabs 05/25/25 sodium chloride 1,000 mg soluble tablet 1,000 mg PO QID #120 tabs 05/25/25 Discharge Plan Discharge Discharge Orders: Discharge Patient (ONCE); Ordered 05/25/25 Ordered By: DIALLO FLORES Activity Restrictions/Additional Instructions: Diagnosis: Hyponatremia, UTI Diet: Regular, limit your water intake to 2L per day, 1L should include gatorade/powerade Activity as tolerated. Medications: [facility] * Sodium Chloride 1G take 4 times a day * Cefpodoxime 200 mg twice a day until completed Follow-up with your primary care provider. Be sure to perform catheter care as discussed daily. Empty your catheter bag on a regular basis. You have been referred to [facility]. They will be in contact with you to initiate care. If you have any questions or need to speak with them, their contact number is . Instructions: Urinary Tract Infection in Women (GEN), Hyponatremia (GEN), Solis Catheter Placement and Care (GEN) Care Plan Goals: Problem: Fluid and electrolyte imbalance Goal: Maintain fluid and electrolyte balance Instructions: Monitor I/O as needed Obtain labs related to electrolytes Problem: Risk for falls Goal: No falls or injury Instructions: Have no throw rugs on the floor Make sure pathway is clear of all objects Use assistance devices if applicable Problem: Infection Goal #1: No signs/symptoms of infection Instructions: Monitor for sign/symptoms of infection Monitor temperature Clean Solis Cath twice daily with antibacterial soap and clean after bowel movements Goal #2: White blood cell counts Within Normal Limits Instructions: Obtain labs per physician orders Patient Disposition: HOME SELF-CARE Prescriptions: New sodium chloride 1,000 mg Tablet,Soluble 1,000 mg PO QID Qty: 120 0RF cefpodoxime 200 mg Tablet 200 mg PO BIDWM2 Qty: 11 0RF Continued Diony Back and Body 1 EACH tablet 1 ea PO Q4-6H PRN (Reason: pain) atorvastatin 80 mg tablet See Rx Instructions .ROUTE .COMPLEX Qty: 30 2RF Dose Instruction: TAKE ONE TABLET DAILY Rx Instructions: TAKE ONE TABLET DAILY omeprazole 20 mg capsule,delayed release(DR/EC) See Rx Instructions .ROUTE .COMPLEX Qty: 30 2RF Dose Instruction: TAKE 1 CAPSULE DAILY Rx Instructions: TAKE 1 CAPSULE DAILY fenofibrate 160 mg tablet 160 mg PO QDAY Qty: 30 2RF alendronate 70 mg tablet See Rx Instructions .ROUTE .COMPLEX Qty: 12 5RF Dose Instruction: TAKE ONE TABLET ONCE A WEEK WITH 8 OZ OF WATER AT LEAST 30 MIN. BEFORE FIRST FOOD/BEVERAG/DRUG OF THE DAY AND DON'T LIE DOWN FOR 30 MINUTES TO ONE HOUR Rx Instructions: TAKE ONE TABLET ONCE A WEEK WITH 8 OZ OF WATER AT LEAST 30 MIN. BEFORE FIRST FOOD/BEVERAG/DRUG OF THE DAY AND DON'T LIE DOWN FOR 30 MINUTES TO ONE HOUR ropinirole 0.25 mg tablet 0.25 mg PO ONCE Qty: 30 5RF losartan 25 mg tablet 25 mg PO QDAY Qty: 30 2RF Did you review [place] [facility] PHYSICIAN DIRECTOR for ALL controlled substances?: No Discussed opioids are addictive and Narcan is available by prescription or from pharmacy.: No Condition: Stable Referrals: EVGENY KEY MD [STAFF PHYSICIAN, Family Practice] - 05/30/25 10:30 am
[2025-05-25 13:57] VITALS: BP 119/66; PULSE 64; TEMP 97.4
== END 2025-05-25 14:35 | disposition home or self-care (01) | DRG 641 ==
LOC: ED 08:46 → SCU 11:13
PROVIDERS: ADMIT Hospitalist; ATTEND Nurse Practitioner Family